=== PATIENT | female | born 1975 | race Caucasian/White ===

== ENCOUNTER → 2017-11-05 08:58 | Outpatient (CLI) | payer OTHER, SELFPAY ==
--- NOTE | 2017-11-05 09:00 | BI_ITS ---
MAMMOGRAPHY - BILATERAL SCREENING REASON FOR EXAM: Female, 41 years old. Routine annual screening examination. PERTINENT HISTORY: Grandmother with breast cancer. TECHNIQUE: Digital bilateral breast zee (3D mammographic acquisition) in the CC and MLO projections. 2-D mediolateral oblique (MLO) and craniocaudad (CC) views of both breasts were obtained. CAD: Full Field Digital Mammography with Computer Added Detection was performed. COMPARISON: None. Baseline examination. FINDINGS: Breast Composition: The breasts are extremely dense, which lowers the sensitivity of mammography. There are no dominant masses or suspicious calcifications. No other significant abnormalities are identified. BI/SCREENING MAMM (CAD), BILAT IMPRESSION: Stable bilateral screening mammogram. Yearly follow-up mammogram recommended. (A) ASSESSMENT CATEGORY: BIRADS Category 1: Negative. A letter regarding these results will be sent to the patient by the facility within 30 days. Approximately 10% of breast cancers are not detected by mammography. A normal mammogram should not delay biopsy of a clinically suspicious abnormality. [id number] Electronically Signed: Carlin Encinas MD at 10:37 EDT Tel [phone], Service support ,
== END ==
PROVIDERS: Family Provider Internal Medicine; PCP Internal Medicine; Visit Provider Obstetrics & Gynecology
DX: Z12.31 Encounter for screening mammogram for malignant neoplasm of breast (principal); Z80.3 Family history of malignant neoplasm of breast
CPT/HCPCS: 77063; 77067

== ENCOUNTER → 2018-08-03 16:49 | Outpatient (CLI) | payer OTHER, SELFPAY ==
[2018-08-03 14:29] VITALS: BMI 20.9
[2018-08-03 20:02] LABS: Chlamydia Trachomatis by PCR Negative (Negative); Neisserai gonorrhoeae by PCR Negative (Negative); Probe Check PASS; Sample Adequacy Control PASS; Specimen Processing Control PASS
== END ==
PROVIDERS: Family Provider Internal Medicine; PCP Internal Medicine; Referring Provider Nurse Practitioner Women's Health; Visit Provider Nurse Practitioner Women's Health
DX: N76.0 Acute vaginitis (principal); Z11.3 Encounter for screening for infections with a predominantly sexual mode of transmission
CPT/HCPCS: 87070; 87205; 87491; 87591

== ENCOUNTER → 2018-08-18 18:12 | Outpatient (CLI) | payer OTHER, SELFPAY ==
[2018-08-18 13:35] VITALS: BMI 20.9
== END ==
PROVIDERS: Family Provider Internal Medicine; PCP Internal Medicine; Referring Provider Nurse Practitioner Women's Health; Visit Provider Nurse Practitioner Women's Health
DX: N89.8 Other specified noninflammatory disorders of vagina (principal)
CPT/HCPCS: 87070; 87205

== ENCOUNTER → 2018-12-06 17:00 | Outpatient (CLI) | payer OTHER, SELFPAY ==
[2018-10-03 11:31] VITALS: BMI 20.9
[2018-10-07 12:29] LABS: HPV APTIMA, High Risk Negative (Negative)
--- NOTE | 2018-12-06 17:00 | BI_ITS ---
MAMMOGRAPHY - BILATERAL SCREENING REASON FOR EXAM: Female, 43 years old. Routine annual screening examination. PERTINENT HISTORY: Grandmother with breast cancer. TECHNIQUE: Digital bilateral breast home (3D mammographic acquisition) in the CC and MLO projections. 2-D mediolateral oblique (MLO) and craniocaudad (CC) views of both breasts were obtained. CAD: Full Field Digital Mammography with Computer Added Detection was performed. COMPARISON: Comparison is made with prior study dated November 05, 2017. FINDINGS: Breast Composition: The breasts are extremely dense, which lowers the sensitivity of mammography. There are no dominant masses or suspicious calcifications. I suspect a 9.1 mm x 7.6 mm well-defined nodule in the deep upper lateral aspect of the left breast. Correlation with ultrasound is recommended. No other significant abnormalities are identified. BI/SCREEN MAMM (CAD) W/HOME BILAT IMPRESSION: I suspect the 9.1 mm x 7.6 mm well-defined nodule in the deep upper lateral aspect of the left breast. Correlation with ultrasound is recommended. ASSESSMENT CATEGORY: BIRADS Category 0: Incomplete. Need additional imaging evaluation. A letter regarding these results will be sent to the patient by the facility within 30 days. Approximately 10% of breast cancers are not detected by mammography. A normal mammogram should not delay biopsy of a clinically suspicious abnormality. [id number] Electronically Signed: Carlin Encinas, at 9:00 EDT , Service support ,
== END ==
PROVIDERS: Family Provider Internal Medicine; PCP Internal Medicine; Referring Provider Obstetrics & Gynecology; Visit Provider Obstetrics & Gynecology
DX: Z12.31 Encounter for screening mammogram for malignant neoplasm of breast (principal); Z12.4 Encounter for screening for malignant neoplasm of cervix; Z80.3 Family history of malignant neoplasm of breast
CPT/HCPCS: 77063; 77067; 87624; 88175; G0145

== ENCOUNTER → 2018-12-16 09:20 | Outpatient (CLI) | payer OTHER, SELFPAY ==
[2018-10-03 11:31] VITALS: BMI 20.9
--- NOTE | 2018-12-16 09:27 | US_ITS ---
STUDY: ULTRASOUND BREAST - LEFT REASON FOR EXAM: Female, 43 years old. Abnormal screening mammogram. TECHNIQUE: Axial and longitudinal images of the LEFT breast were performed with a high resolution ultrasound transducer. COMPARISON: Comparison is made with prior mammogram dated December 06, 2018 FINDINGS: LEFT Breast: The lateral aspect of the left breast was examined by ultrasound. There are multiple small cysts. The largest measures 8 mm x 9 mm x 5 mm. This is at the 4:00 position in the breast at 3 cm from the nipple. US/Breast Limited Unilateral IMPRESSION: The mammographic abnormality corresponds to a small cyst. Routine annual mammographic follow-up is recommended. ASSESSMENT CATEGORY: BIRADS Category 2: Benign. A letter regarding these results will be sent to the patient by the facility within 30 days. Electronically Signed: Carlni Encinas, at 11:10 EDT , Service support ,
== END ==
PROVIDERS: Family Provider Internal Medicine; PCP Internal Medicine; Referring Provider Obstetrics & Gynecology; Visit Provider Obstetrics & Gynecology
DX: N63.20 Unspecified lump in the left breast, unspecified quadrant (principal); R92.8 Other abnormal and inconclusive findings on diagnostic imaging of breast
CPT/HCPCS: 76642

== ENCOUNTER → 2019-02-09 17:11 | Outpatient (CLI) | payer OTHER, SELFPAY ==
[2019-02-09 10:57] VITALS: BMI 20.9
== END ==
PROVIDERS: Family Provider Internal Medicine; PCP Internal Medicine; Referring Provider Nurse Practitioner Women's Health; Visit Provider Nurse Practitioner Women's Health
DX: R30.0 Dysuria (principal)
CPT/HCPCS: 87086; 87088; 87186

== ENCOUNTER → 2019-07-03 16:45 | Outpatient (CLI) | payer OTHER, SELFPAY ==
[2019-07-03 12:56] VITALS: BMI 20.9
== END ==
PROVIDERS: Family Provider Internal Medicine; PCP Internal Medicine; Referring Provider Nurse Practitioner Women's Health; Visit Provider Nurse Practitioner Women's Health
DX: N76.0 Acute vaginitis (principal)
CPT/HCPCS: 87070; 87205

== ENCOUNTER → 2020-01-12 13:29 | Outpatient (CLI) | payer OTHER, SELFPAY ==
[2020-01-08 08:46] VITALS: BMI 20.9
--- NOTE | 2020-01-12 13:31 | US_ITS ---
STUDY: ULTRASOUND BREAST - LEFT REASON FOR EXAM: Female, 44 years old. Palpable lump in the right breast. TECHNIQUE: Axial and longitudinal images of the LEFT breast were performed with a high resolution ultrasound transducer. # OF IMAGES: 26 COMPARISON: Comparison is made with prior mammogram dated January 12, 2020. FINDINGS: LEFT Breast: Multiple small cysts are seen. The largest measures 4 mm x 5 mm x 5 mm. This is at the 12:00 position of the breast at 3 cm from the nipple. US/Breast Limited Unilateral IMPRESSION: Multiple small cysts. The largest measures 4 mm x 5 mm x 5 mm. ASSESSMENT CATEGORY: BIRADS Category 2: Benign. A letter regarding these results will be sent to the patient by the facility within 30 days. Electronically Signed: Carlin Encinas, at 14:32 EDT , Service support ,
--- NOTE | 2020-01-12 13:31 | BI_ITS ---
MAMMOGRAPHY - BILATERAL DIAGNOSTIC REASON FOR EXAM: Female, 44 years old. Left breast lump. PERTINENT HISTORY: Grandmother with breast cancer. Prior left ultrasound guided Breast Biopsy. TECHNIQUE: Digital bilateral breast zee (3D mammographic acquisition) in the CC and MLO projections. 2-D mediolateral oblique (MLO) and craniocaudad (CC) views of both breasts were obtained. CAD: Full Field Digital Mammography with Computer Added Detection was performed. COMPARISON: Comparison is made with a prior examination dated December 06, 2018. FINDINGS: Breast Composition: The breasts are extremely dense, which lowers the sensitivity of mammography. Amorphous calcifications are now seen in the upper central portion of the left breast. A biopsy is recommended for further evaluation. No other significant abnormalities are identified. BI/DIAG MAMM W/CAD, BILAT IMPRESSION: Amorphous calcifications are now seen in the upper central portion of the left breast. A biopsy is recommended for further evaluation. ASSESSMENT CATEGORY: BIRADS Category 4: Suspicious - Biopsy Should Be Considered. A letter regarding these results will be sent to the patient by the facility within 30 days. Approximately 10% of breast cancers are not detected by mammography. A normal mammogram should not delay biopsy of a clinically suspicious abnormality. Electronically Signed: Carlin Encinas, at 14:24 EDT , Service support ,
== END ==
PROVIDERS: PCP Internal Medicine; Referring Provider Obstetrics & Gynecology; Visit Provider Obstetrics & Gynecology
DX: N60.12 Diffuse cystic mastopathy of left breast (principal); Z80.3 Family history of malignant neoplasm of breast
CPT/HCPCS: 76642; 77062; 77066; G0279

== ENCOUNTER → 2020-01-19 10:40 | Outpatient (CLI) | payer OTHER, SELFPAY ==
[2020-01-17 09:09] VITALS: BMI 20.6
--- NOTE | 2020-01-19 | IMM_PTH ---
PATIENT: SALVATORE ZHANG LOC: [facility] U#:[id number] AGE/SX: 49/F ROOM: RE01/19/[address]: Dr. Quinn Gallegos MD : 1975 BED: DIS: SPEC #: [id number] RECD: 01/23/20 10:48 STATUS: LAURA REQ #: [id number] DONTE: 01/19/20 00:[address]: Quinn Gallegos DEPT: IMMUNOHISTOCHEMISTRY RECD BY: Roxanne Matute ENTERED: 01/23/20 10:49 SP TYPE: IMMUNO OTHR DR: Dr. Grace Alvarado MD Tissues: Left breast, NOS Procedures: CALPONIN-1 (add) CK5-6 (add) E-CAD (add) HER2 MARY LOU (add) KI-67 (add) P53 (add) NM (add) P40 (add) ER (initial) PHYSICIAN & INSTITUTION [address] [address] SPECIMEN INFORMATION: Tissue Source: Left breast Clinical Info: Left upper central breast microcalcifications Specimen Number: [id number] #1 CPT code: 66137, 27035 x6, 55332 x3 METHODOLOGY: Deparaffinized sections of prefer/formalin-fixed tissue or PAP/DQ stained slides are incubated with monoclonal/polyclonal antibodies/oligonucleotide probes. Localization is made via biotin free immunoperoxidase method. Appropriate controls are performed and reacted as expected. Results on target cell population are indicated in the following table: RESULTS: ANTIBODY / CLONE RESULT Block 1 E-Cad (ECH-6) positive CK8 (52oyprL76) positive Calponin-1 (KK485O) negative * CK5-6 (D5 & 1684) positive P40 (BC28) negative * P53 (DO-7) negative Ki-67 (30-9) positive, moderate *?Positive in the area of ductal carcinoma in situ. MORPHOMETRIC ANALYSIS ER (clone 6F11) >95%, strong intensity NM (clone 16/1E2) 28% moderate intensity Her-2Neu (clone CB11) 0 The prognostic test for HER2 is performed on formalin-fixed paraffin embedded tissue. A 3+ (positive) staining pattern is defined as intense, homogeneous, complete, circumferential membranous staining in >10% of contiguous tumor cells. A similar weak (2+) staining pattern is interpreted as equivocal. NIKHIL follow-up testing is recommended for all equivocal cases. Positivity/negativity for ER/NM is reported if > or < 1% of the tumor cells are immuno- reactive, respectively. The ASCO/CAP criteria is used for scoring. Reference: Journal of Clinical Oncology, 2013; 31:4180-6263 & 2010; 16:2110-8702. Duration of fixation: 80 Hrs; Sample Adequate: Yes. These assays have not been validated on decalcified tissues. Results should be interpreted with caution given the likelihood of false negativity on decalcified specimens. These tests were developed and their performance characteristics determined by [facility]. They may not have been cleared or approved by the U.S. Food and Drug Administration. The FDA has determined that such clearance or approval is not necessary. The above immunohistochemical/dualISH markers are ordered and reviewed by the Pathologist. 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 Positive for estrogen receptors (favorable prognostic indicator). Positive for progesterone receptors (favorable prognostic indicator). Negative for overexpression of KTT6emq. SJ:dewey 01/24/20
--- NOTE | 2020-01-19 11:25 | BRBX_PTH ---
PATIENT: SALVATORE ZHANG LOC: [facility] U#:[id number] AGE/SX: 49/F ROOM: RE01/19/[address]: Dr. Quinn Gallegos MD : 1975 BED: DIS: SPEC #: [id number] RECD: 01/19/20 13:42 STATUS: LAURA YOVANA #: [id number] DONTE: 01/19/20 11:[address]: Quinn Gallegos DEPT: SURGICAL PATHOLOGY RECD BY: Herminia Jean Baptiste ENTERED: 01/22/20 10:56 SP TYPE: BREAST BX OTHR DR: Dr. Grace Alvarado MD Tissues: Left breast, NOS Procedures: Surgery Specimen Level IV HEADER OPERATION: Left breast stereotactic biopsy PRE-OP DIAGNOSIS: Left upper central breast microcalcification TISSUE SUBMITTED: Left breast tissue ISCHEMIC TIME: 2 minutes FIXATION TIME: 80 hours MICROSCOPIC DIAGNOSIS Left breast, upper central microcalcifications, stereotactic core biopsy: Invasive ductal carcinoma, nuclear grade 1 (1 cm in greatest length). Ductal carcinoma in situ. See comment. LIV:dewey 01/23/20 COMMENT Ductal carcinoma in situ shows cribriform pattern, nuclear grade 2, microcalcifications, comedo necrosis and comprise about 30% of the total tumor volume. Immunohistochemistry ([id number]) supports the above diagnosis. ER/KS/Ksp9sui studies are being performed on sections of tumor and the results from this study will be reported separately ([id number]). Case has been reviewed in consultation with Dr. Bowden who concurs with the above diagnosis. IDC:AM MICROSCOPIC DESCRIPTION Slides are reviewed. GROSS DESCRIPTION Received in fixative is one container labeled with the patient name and designated left breast. The specimen consists of multiple elongated fragments of delarosa-yellow fibroadipose tissue that in aggregate measure 4 x 3 x 0.3 cm. The entire specimen is submitted in two cassettes. / LIV:dewey 01/22/20 TC:0 CPT: 42145
--- NOTE | 2020-01-19 11:55 | NURSING ---
PRESSURE HELD, NO BLEEDING OR BRUISING, SKIN PREP APPLIED, STERI STRIPS X5 APPLIED,OCCULSIVE DRESSING APPLIED, REVIEWED HOME CARE.
--- NOTE | 2020-01-19 14:06 | PCM.OPRPT ---
Problem List (1) Breast lump Status: Acute Comment: 12 o clock L breast, imaging ordered. plan either gen surg consult or fu exam in office in 1 month based on results. Report of Operation Date of Procedure: 01/19/20 Pre-Operative Diagnosis: Left breast microcalcifications on mammogram Post-Operative Diagnosis: Same Surgery/Procedure Performed:: Stereotactic guided core needle biopsy of the left breast Specimen's removed: Left breast biopsy Description of Procedure: Patient was brought to the stereotactic room and placed on the stereotactic table. The left breast was compressed and mammogram views were obtained. Once the microcalcifications were isolated stereotactic views were obtained and the microcalcifications were targeted. After the needle was oriented the skin was cleaned and injected with local anesthetic. Next a small onur was made with a scalpel and the stereotactic needle was placed into the breast. Stereotactic views were then reobtained to ensure that the needle was in position and biopsies were obtained. The aperture was only half open due to the size of her breast and enough calcifications were not obtained. The aperture was changed to three quarters open and biopsies were repeated. Mammogram of these repeat biopsies did reveal microcalcifications. Next the clip was placed into the breast and then the needle was removed. A Steri-Strip and bandage were placed over the breast and the patient was discharged home in stable condition. Patient tolerated procedure well.
--- NOTE | 2020-02-09 02:38 | HP_ITS ---
Intake Vital Signs 02/09/20 BMI 20.6 02/09/20 Height 5 ft 8 in 02/09/20 Weight: 136 lb 02/09/20 BMI 20.7 02/09/20 BP 125/74 H 02/09/20 Blood Pressure Location Rt brachial 02/09/20 Position Sitting 02/09/20 Respiration 18 02/09/20 Pulse 88 02/09/20 Pulse Source Monitor 02/09/20 Temp 98.0 F 02/09/20 Temp Source Temporal 02/09/20 Pulse Oximetry (%) 100 02/09/20 Oxygen Delivery Method room air Intake Visit Reasons: DISCUSS SURGERY Chief Complaint: discuss breast surgery Vp Of Customer Experience Strategy Required: No Accompanied by: Is patient in pain?: No Allergies cephalexin [From Keflex] Allergy (Intermediate, Verified 02/09/20 14:07) Rash sulfamethoxazole [From Bactrim] Adverse Reaction (Intermediate, Verified 02/09/20 14:07) inflammation/itching/rash trimethoprim [From Bactrim] Adverse Reaction (Intermediate, Verified 02/09/20 14:07) inflammation/itching/rash Medications levonorgestrel-ethinyl estradiol 0.1 mg-20 mcg tablet 1 tab PO DAILY 07/03/19 [History Confirmed 02/09/20] lactobacillus combination no.4 3 billion cell capsule 3,000 mmu cells PO DAILY 01/17/20 [History Confirmed 02/09/20] multivitamin 1 tab PO DAILY 01/17/20 [History Confirmed 02/09/20] PFSH Medical History Estrogen receptor positive status (ER+) (Chronic) Allergies (Acute) Breast cancer, left (Acute) Breast cyst (Acute) Frequent headaches (Acute) Surgical History H/O cervical polypectomy (Acute) history of uterine cyst removal (Acute) Family History Mother High cholesterol Arthritis Brother High cholesterol Hodgkin lymphoma Grandmother Breast cancer, Onset Age: 78 Maternal Father Hypertension Other Heart disease Myocardial infarction Social History (Updated 02/09/20 @ 14:[address] 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 Patient was found to have a left invasive ductal carcinoma. ROS General General: No weight change, appetite, fatigue, colon cancer, breast cancer or weakness HEENT HEENT: No difficulty swallowing, eye injury, eye surgery, swollen glands or hoarseness Endo Endocrine: No thyroid disease, diabetes mellitus, thyroid cancer, Hair loss, heat intolerance or cold intolerance Breast Breast: Yes abnormal mammogram and abnormal US; no left breast lump, right breast lump, nipple discharge, breast pain or breast enlargement Cardio Cardiovascular: No murmur, pacemaker, heart disease, atrial fibrillation, high blood pressure, heart attack, heart stent, palpitations, shortness of breat with exertion or chest pain Psych Psychiatric: No depression, anxiety or hearing voices Resp Respiratory: No shortness of breath, No sleep apnea, No cough, No COPD, No asthma, No emphysema, No wheezing Gastro Gastrointestinal: No abdominal pain, No nausea or vomiting, No diarrhea, No constipation, No blood in stool, No acid reflux, No hemorrhoids, No ulcers, No gallbladder problem, No black,tarry stools Vargas Hematologic: No blood thinners, No blood disorders, No bleeding, No anemia, No blood clots Neuro Neurologic: No weakness Exam Const General: cooperative Orientation: alert, oriented x3 Chest Breast Palpation: No nipple discharge Resp Effort & Inspection: normal respiratory effort Auscultation: clear to auscultation bilaterally Cardio Rate: regular rate Rhythm: regular rhythm Heart Sounds: no murmurs GI Inspection: non-distended Palpation: soft, nontender Assessment & Plan Problems 1. Malignant neoplasm of upper-outer quadrant of left breast in female, estrogen receptor positive C50.412; Z17.0 Plan The patient has invasive ductal carcinoma of the left breast. The patient did see radiation oncology as well as plastic surgery in anticipation of deciding what surgery to perform. The patient has decided on a skin sparing left mastectomy with sentinel lymph node biopsy. I discussed that this would leave future reconstruction option. I also discussed the risks of sentinel lymph node biopsy such as nerve injury or bleeding or seroma. I also discussed drain placement and short-term observation with the patient. I also discussed the possibility of lymphedema. All the patient's questions were answered and I will schedule the patient for left skin sparing mastectomy and sentinel lymph node biopsy with injection of radiotracer and blue dye. We discussed the current risks associated with COVID-19. While it is understood that there is a community spread of COVID-19, the risk of iain COVID-19 while at [facility] ([facility]) is very low; however, the risk cannot be completely mitigated because of the community spread of the disease. We discussed in detail the risk of exposure to and/or potential harm posed by the COVID-19 virus with having a surgery/procedure at this time versus the risk of delaying the surgery/procedure. It is not possible to know either the risk of delaying the surgery or procedure or chance of getting an infection with perfect accuracy, but a joint decision was made to proceed at this time with the scheduled surgery/procedure as indicated on the consent form. Patient was notified that we will need to comply with any screening or testing [facility] wishes to perform or that surgery may be delayed for any positive results. Quinn Gallegos MD Pager: [facility] [address] [place] [address], [address] [place] [address] Office: Coding Level of Care Code Off vis,est,level 3 Diagnoses Malignant neoplasm of upper-outer quadrant of left breast in female, estrogen receptor positive C50.412; Z17.0 ??Breast location: upper outer quadrant of breast ??Estrogen receptor status: positive ??Patient sex: female 02/09/20 [id number] <Electronically signed by Quinn mckeon MD> Date _ Quinn Gallegos MD
== END ==
PROVIDERS: PCP Internal Medicine; Visit Provider Surgery
DX: C50.112 Malignant neoplasm of central portion of left female breast (principal); Z17.0 Estrogen receptor positive status [ER+]
CPT/HCPCS: 19081; 88305; 88341; 88342; J7050; A4648

== ENCOUNTER 2020-02-26 12:52 | Observation (INO) | payer OTHER, SELFPAY ==
[2020-02-01 09:13] VITALS: BMI 20.7
--- NOTE | 2020-02-09 02:38 | HP_ITS ---
Intake Vital Signs 02/09/20 BMI 20.6 02/09/20 Height 5 ft 8 in 02/09/20 Weight: 136 lb 02/09/20 BMI 20.7 02/09/20 BP 125/74 H 02/09/20 Blood Pressure Location Rt brachial 02/09/20 Position Sitting 02/09/20 Respiration 18 02/09/20 Pulse 88 02/09/20 Pulse Source Monitor 02/09/20 Temp 98.0 F 02/09/20 Temp Source Temporal 02/09/20 Pulse Oximetry (%) 100 02/09/20 Oxygen Delivery Method room air Intake Visit Reasons: DISCUSS SURGERY Chief Complaint: discuss breast surgery Machine Fastener Required: No Accompanied by: Is patient in pain?: No Allergies cephalexin [From Keflex] Allergy (Intermediate, Verified 02/09/20 14:07) Rash sulfamethoxazole [From Bactrim] Adverse Reaction (Intermediate, Verified 02/09/20 14:07) inflammation/itching/rash trimethoprim [From Bactrim] Adverse Reaction (Intermediate, Verified 02/09/20 14:07) inflammation/itching/rash Medications levonorgestrel-ethinyl estradiol 0.1 mg-20 mcg tablet 1 tab PO DAILY 07/03/19 [History Confirmed 02/09/20] lactobacillus combination no.4 3 billion cell capsule 3,000 mmu cells PO DAILY 01/17/20 [History Confirmed 02/09/20] multivitamin 1 tab PO DAILY 01/17/20 [History Confirmed 02/09/20] PFSH Medical History Estrogen receptor positive status (ER+) (Chronic) Allergies (Acute) Breast cancer, left (Acute) Breast cyst (Acute) Frequent headaches (Acute) Surgical History H/O cervical polypectomy (Acute) history of uterine cyst removal (Acute) Family History Mother High cholesterol Arthritis Brother High cholesterol Hodgkin lymphoma Grandmother Breast cancer, Onset Age: 78 Maternal Father Hypertension Other Heart disease Myocardial infarction Social History (Updated 02/09/20 @ 14:[address] 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 Patient was found to have a left invasive ductal carcinoma. ROS General General: No weight change, appetite, fatigue, colon cancer, breast cancer or weakness HEENT HEENT: No difficulty swallowing, eye injury, eye surgery, swollen glands or hoarseness Endo Endocrine: No thyroid disease, diabetes mellitus, thyroid cancer, Hair loss, heat intolerance or cold intolerance Breast Breast: Yes abnormal mammogram and abnormal US; no left breast lump, right breast lump, nipple discharge, breast pain or breast enlargement Cardio Cardiovascular: No murmur, pacemaker, heart disease, atrial fibrillation, high blood pressure, heart attack, heart stent, palpitations, shortness of breat with exertion or chest pain Psych Psychiatric: No depression, anxiety or hearing voices Resp Respiratory: No shortness of breath, No sleep apnea, No cough, No COPD, No asthma, No emphysema, No wheezing Gastro Gastrointestinal: No abdominal pain, No nausea or vomiting, No diarrhea, No constipation, No blood in stool, No acid reflux, No hemorrhoids, No ulcers, No gallbladder problem, No black,tarry stools Vargas Hematologic: No blood thinners, No blood disorders, No bleeding, No anemia, No blood clots Neuro Neurologic: No weakness Exam Const General: cooperative Orientation: alert, oriented x3 Chest Breast Palpation: No nipple discharge Resp Effort & Inspection: normal respiratory effort Auscultation: clear to auscultation bilaterally Cardio Rate: regular rate Rhythm: regular rhythm Heart Sounds: no murmurs GI Inspection: non-distended Palpation: soft, nontender Assessment & Plan Problems 1. Malignant neoplasm of upper-outer quadrant of left breast in female, estrogen receptor positive C50.412; Z17.0 Plan The patient has invasive ductal carcinoma of the left breast. The patient did see radiation oncology as well as plastic surgery in anticipation of deciding what surgery to perform. The patient has decided on a skin sparing left mastectomy with sentinel lymph node biopsy. I discussed that this would leave future reconstruction option. I also discussed the risks of sentinel lymph node biopsy such as nerve injury or bleeding or seroma. I also discussed drain placement and short-term observation with the patient. I also discussed the possibility of lymphedema. All the patient's questions were answered and I will schedule the patient for left skin sparing mastectomy and sentinel lymph node biopsy with injection of radiotracer and blue dye. We discussed the current risks associated with COVID-19. While it is understood that there is a community spread of COVID-19, the risk of iain COVID-19 while at [facility] ([facility]) is very low; however, the risk cannot be completely mitigated because of the community spread of the disease. We discussed in detail the risk of exposure to and/or potential harm posed by the COVID-19 virus with having a surgery/procedure at this time versus the risk of delaying the surgery/procedure. It is not possible to know either the risk of delaying the surgery or procedure or chance of getting an infection with perfect accuracy, but a joint decision was made to proceed at this time with the scheduled surgery/procedure as indicated on the consent form. Patient was notified that we will need to comply with any screening or testing [facility] wishes to perform or that surgery may be delayed for any positive results. Quinn Gallegos MD Pager: [facility] [address] [place] [address], [address] [place] [address] Office: Coding Level of Care Code Off vis,est,level 3 Diagnoses Malignant neoplasm of upper-outer quadrant of left breast in female, estrogen receptor positive C50.412; Z17.0 ??Breast location: upper outer quadrant of breast ??Estrogen receptor status: positive ??Patient sex: female 02/09/20 6228 <Electronically signed by Quinn Gallegos MD> Date Quinn Gallegos MD I have re-examined the patient. There are no clinical changes since date of exam.
[2020-02-09 14:07] VITALS: BMI 20.6
[2020-02-14 09:35] VITALS: BMI 20.6
[2020-02-26] VITALS (10 sets, daily range): BP systolic 100–117; BP diastolic 57–73; PULSE 65–96; RESP 12–18; TEMP 36.2–37.2; O2SAT 98–100; BMI 20.4
--- NOTE | 2020-02-26 | IMM_PTH ---
PATIENT: SALVATORE ZHANG LOC: MS3 U#:[id number] AGE/SX: 44/F ROOM: MO320 RE02/26/[address]: Dr. Quinn Gallegos MD : 1975 BED: 1 DIS: 02/27/2020 SPEC #: [id number] RECD: 02/28/20 13:26 STATUS: LAURA RERichy #: [id number] DONTE: 02/26/20 00:[address]: Quinn Gallegos DEPT: IMMUNOHISTOCHEMISTRY RECD BY: Roxanne Matute ENTERED: 02/28/20 13:29 SP TYPE: IMMUNO OTHR DR: Dr. Grace Alvarado MD Tissues: A - Axillary lymph node, NOS B - Axillary lymph node, NOS C - Left breast, NOS Procedures: CK8 (initial) SMA (add) CALPONIN-1 (add) CD31 (add) CK8 (add) E-CAD (add) Pankeratin (add) P40 (add) PHYSICIAN & INSTITUTION [address] [address] SPECIMEN INFORMATION: Tissue Source: A - [place] lymph nodes, B - [place] lymph node, C - Left breast Clinical Info: Malignant neoplasm of UOQ left breast, ER positive Specimen Number: [id number] A1, A2, B1, C11, C13 CPT code: 53994 x3, 86611 x15 METHODOLOGY: Deparaffinized sections of prefer/formalin-fixed tissue or PAP/DQ stained slides are incubated with monoclonal/polyclonal antibodies/oligonucleotide probes. Localization is made via biotin free immunoperoxidase method. Appropriate controls are performed and reacted as expected. Results on target cell population are indicated in the following table: RESULTS: ANTIBODY / CLONE RESULT Block A1 AE1-3 (AE1/AE3/PCK26) positive CK8 ([id number]) positive Block A2 AE1-3 (AE1/AE3/PCK26) negative CK8 (08pxgtK21) negative Block B1 AE1-3 (AE1/AE3/PCK26) negative CK8 (38bjdvI92) negative Block C11 P40 (BC28) negative Calponin-1 (GB343L) negative Actin (1A4) negative E-Cad (ECH-6) positive CK8 (68szduV82) positive CD31 (JOMAR/70A) positive Block C13 P40 (BC28) negative Calponin-1 (MO453G) negative Actin (1A4) negative E-Cad (ECH-6) positive CK8 (04znlbN55) positive CD31 (JOMAR/70A) negative These tests were developed and their performance characteristics determined by [facility]. They may not have been cleared or approved by the U.S. Food and Drug Administration. The FDA has determined that such clearance or approval is not necessary. The above immunohistochemical/dualISH markers are ordered and reviewed by the Pathologist. INTERPRETATION: A. [place] lymph nodes, biopsy: One of one lymph node with micrometastatic carcinoma. B. [place] lymph node, biopsy: One of one lymph node negative for carcinoma. C. Left breast, mastectomy: Invasive ductal carcinoma, multifocal. Focal angiolymphatic invasion by carcinoma. AM:dewey 02/29/20 Case has been reviewed in consultation with Dr. Blanca who concurs with the above diagnosis. IDC:SJ
--- NOTE | 2020-02-26 | AXNB_PTH ---
PATIENT: SALVATORE ZHANG LOC: MS3 U#:[id number] AGE/SX: 44/F ROOM: IL320 RE02/26/[address]: Dr. Quinn Gallegos MD : 1975 BED: 1 DIS: 02/27/2020 SPEC #: [id number] RECD: 02/26/20 11:53 STATUS: LAURA YEN #: [id number] DONTE: 02/26/20 00:[address]: Quinn Gallegos DEPT: SURGICAL PATHOLOGY RECD BY: Roxanne Matute ENTERED: 02/26/20 12:33 SP TYPE: AX NODE BX OTHR DR: Dr. Grace Alvarado MD Tissues: A - Axillary lymph node, NOS B - Axillary lymph node, NOS C - Left breast, NOS Procedures: Frozen Section (charge) Frozen Section Add'l ([facility]) Surgery Specimen Level V Surgery Specimen Level HEADER OPERATION: Mastectomy with sentinel lymph node biopsy, radiotracer PRE-OP DIAGNOSIS: Malignant neoplasm of upper outer quadrant left breast, ER positive TISSUE SUBMITTED: A - [place] lymph node, FS, 2 - [place] lymph node, FS, C - Left breast, short suture - superior, long suture - lateral FROZEN SECTION DIAGNOSIS A. [place] lymph nodes, biopsy: Two out of two lymph nodes, negative for metastatic carcinoma. B. [place] lymph node, left, biopsy: One lymph node, negative for metastatic carcinoma. SJ:dewey 02/26/20 MICROSCOPIC DIAGNOSIS A. Left axillary sentinel lymph nodes, biopsy: One out of two lymph nodes, positive for micrometastatic carcinoma. B. Left axillary sentinel lymph node, biopsy: One out of one lymph node, negative for carcinoma. C. Left breast, mastectomy: Invasive ductal carcinoma. See cancer checklist below. AM:dewey 02/29/20 COMMENT INVASIVE BREAST CANCER SUMMARY: Procedure: Mastectomy Specimen: Type: Total breast Size: 13 x 12 x 4 cm Laterality: Left breast Invasive Tumor: Size: Largest focus - 2.5 x 2 x 2 cm Second focus - 1.6 x 1.2 x 0.3 cm Third focus - 0.4 x 0.3 x 0.3 cm Focality: Multifocal Histologic type: Invasive ductal carcinoma, NOS. Histologic grade (Bella[place] grade): Glandular/tubular differentiation score: 2 Nuclear pleomorphism score: 2 Mitotic count score: 2 Overall grade: 2 (score of 6) Lymphvascular invasion: focally present Ductal Carcinoma In Situ: Estimated size (extent): 0.8 x 0.5 x 0.5 cm Number of blocks: 6 of 12 blocks Architectural pattern: Cribriform and comedo Nuclear grade: 3 Necrosis: Present Extensive intraductal component: Present Lobular Carcinoma In Situ: Not present Tumor extension: Skin: Free of carcinoma Nipple: Free of carcinoma Skeletal muscle: Not applicable Margins Involved by Invasive Carcinoma: None. Distance from closest margin: 1 mm from posterior margin Margins Involved by In Situ Carcinoma: None. Distance from closest margin: 1 mm from posterior margin Lymph Nodes: Number of sentinel lymph nodes examined: 3 Number of lymph nodes with macrometastases: 0 Number of lymph nodes with micrometastases: 1 See specimens A & B Size of largest micrometastatic focus: 1 mm Microcalcifications: Present in carcinoma and non-neoplastic tissue. Treatment Effect: Unknown Additional Pathologic Findings: Florid intraductal hyperplasia with multifocal atypical intraductal hyperplasia, fibrocystic change and changes of previous biopsy. Ancillary Studies: Previously performed on same tumor ([id number]) ER: >95%, strong intensity TN: 28%, moderate intensity Lrd2zjn: 0 Clinical History: Mass of left breast Pathologic Stage: T2 N1 Mx The above summary is in compliance with [employer] (CAP) Cancer Protocols Checklist and [place] [employer] Committee on Cancer (AJCC), Staging Manual, 8th Ed. Case has been reviewed in consultation with Dr. Blanca who concurs with the above diagnosis. IDC:SJ MICROSCOPIC DESCRIPTION Slides are reviewed. GROSS DESCRIPTION A - Received fresh for frozen section diagnosis labeled with the patient's name is a specimen designated sentinel lymph node. The specimen consists of a piece of delarosa-yellow fibroadipose tissue measuring 2.5 x 2 x 0.5 cm. Two lymph nodes are identified measuring 0.4 and 2 cm in greatest dimension. The lymph nodes are submitted in entirety for frozen section diagnosis in two cassettes as follows: 1 - frozen section, one lymph node, 2 - frozen section, one bisected lymph node. / SJ: 02/26/20 B - Received fresh for frozen section diagnosis labeled with the patient's name is a specimen designated sentinel lymph node left breast. The specimen consists of a piece of delarosa-yellow fibroadipose tissue measuring 2.5 x 1.5 x 0.5 cm. One lymph node is identified measuring 1 cm in greatest dimension. The entire specimen is submitted in two cassettes as follows: 1 - frozen section, one bisected lymph node, 2??rest of the specimen. / SJ: 02/26/20 C - Received in fixative is one container labeled with the patient's name and designated left breast, short suture - superior, long suture - lateral. The specimen consists of mastectomy specimen consisting of breast tissue with overlying skin ellipse. The breast tissue measures 13 x 12 x 4 cm. The overlying skin ellipse measures 10.5 x 2.5 cm. The nipple measures 1.2 cm in greatest dimension. No skin lesion is identified. Blue dye discoloration is noted on the skin on the breast tissue. The specimen is inked as follows: anterior - yellow, posterior - black, superior - blue, inferior - green, medial - red and lateral - orange. Skeletal muscle tissue is not seen at the posterior margin. Serial sections reveal a delarosa, indurated mass in the superior quadrant of the breast tissue measuring 2.5 x 2 x 2 cm. Sections of the rest of the breast tissue also reveal dense fibrosis. The tumor mass is 0.1 cm away from the closest posterior margin. Sections will be submitted after overnight fixation. / SJ: 02/26/20 A focal area of hemorrhage is also noted. Order Checker Packer Processer sections are submitted in 18 cassettes as follows: 1 - nipple, entirely submitted, 2 - perpendicular medial, lateral and superior margins, 3??perpendicular inferior, anterior margin and skin, 48 - tumor (4 & 5 also contain the closest posterior margin), 9-18 - business services representative sections adjacent to and away from the tumor (cassettes 16-18 contain the area of hemorrhage). This area of hemorrhage is present away from the tumor. / SJ:rg 02/27/20 TC:0 CPT: 62166 x2, 40224, 55802 x2, 99446 x2 ADDENDUM ADDENDUM ADDENDUM ADDENDUM ADDENDUM ADDENDUM ADDENDUM ADDENDUM 03/25/2020 10:32 ADDENDUM 03/25/2020 10:32 ADDENDUM 03/25/2020 10:32 ADDENDUM 03/25/2020 10:32 ADDENDUM 03/25/2020 10:32 An order for Oncotype testing was received from Dr. Ferrer. This necessitated case review, block and slide selection by pathologist at [facility]. Breast Cancer Recurrence Score = 20 Results of the complete Oncotype testing ([facility] report) are viewable in EMR under: Reports - Pathology - Lab Pathology Report, Scanned.
--- NOTE | 2020-02-26 08:30 | NM_ITS ---
PROCEDURE: NUCLEAR MEDICINE Injection [place] Node - LEFT breast(s). REASON FOR EXAM: Female, 44 years old. Left breast cancer. TECHNIQUE: [place] node localization using radionuclide methods of the LEFT breast(s) was performed following subcutaneous administration of 1.1 mCi of of sulfur colloid Tc-99m. NM/Lymph Node Injection Only IMPRESSION: 1.1 mCi of technetium labeled sulfur colloid was injected subcutaneously in 4 equal aliquots at the biopsy site. Electronically Signed: Carlin Encinas, at 10:18 EDT , Service support ,
[2020-02-26 08:42] LABS: Internal QC Validated? YES +Cl - CLEAR BKGD; Pregnancy, Urine Negative Negative
[2020-02-26] MEDS: Lactated Ringers 1,000 ML 100 ML IV ×3 (09:30→14:35)
[2020-02-26] MEDS: 0.9% Normal Saline (Pres. free 10 ML Vial (11:03)
[2020-02-26] MEDS: Isosulfan Blue 1% 5 ML Vial (11:45)
--- NOTE | 2020-02-26 12:57 | PCM.OPRPT ---
Problem List (1) Cancer of left breast Status: Acute Qualifiers: Breast location: upper outer quadrant of breast Estrogen receptor status: positive Patient sex: female Qualified Code(s): C50.412 - Malignant neoplasm of upper-outer quadrant of left female breast; Z17.0 - Estrogen receptor positive status [ER+] Report of Operation Date of Procedure: 02/26/20 Pre-Operative Diagnosis: Left breast cancer Post-Operative Diagnosis: Same Surgery/Procedure Performed:: Left simple mastectomy. Left axillary sentinel lymph node biopsy. Injection of blue dye Specimen's removed: Left breast. Left sentinel lymph node. Left sentinel lymph node specimen #2 Drains: BUFFY to bulb suction Description of Procedure: Patient was brought back to the operating room and general anesthesia was induced. The left breast was wiped with alcohol swab and 5 cc of Lymphazurin was injected into the retroareolar space. 5 cc of saline were then injected and the breast was massaged for 5 minutes. Next the left breast and axillary region were prepped and draped in usual sterile fashion. An incision was marked in elliptical fashion around the nipple extending to the left axillary region. An incision was then made and electrocautery was used to deepen the incision to the breast tissue. The superior flap was raised using electrocautery as well as the inferior flap in the same fashion. Hemostasis was obtained. The flaps were extended laterally into the axilla. The axillary fascia was incised. Using radiotracer the axilla was inspected and there appeared to be a hot zone of lymph nodes. There was one small lymph node dissected free and a medium clip was used to take it at its pedicle. There were 2 other lymph nodes that had radioactive activity that were removed. The highest 10-second count was 4500. Nothing remained over 200 in the axilla after biopsy. There is good hemostasis in the axilla. Next the breast was taken off of the pectoral muscle. This was done in a medial to lateral fashion and the left breast was marked and sent for pathology. The frozen on the axillary lymph nodes came back as negative in all 3 lymph nodes. The area was irrigated and suctioned dry and hemostasis was maintained using electrocautery. Next a drain was placed through the skin and around the mastectomy site and Carlee powder was sprayed over the pectoral muscle. The skin was anesthetized and closed with interrupted 3-0 Vicryl sutures as well as a running 4-0 Monocryl suture. The drain was sutured in place using a 3-0 nylon suture. Glue was placed over the incision. The patient was awoken and taken to PACU in stable condition. - Admit VTE Documentation VTE Mechan Device Prophylaxis: SCD's
[2020-02-26] MEDS: Acetaminophen 325 MG Tablet 650 MG PO ×2 (16:15→20:33)
[2020-02-26] MEDS: Ketorolac 15 MG/ML Vial IV (20:32)
[2020-02-26] MEDS: 0.9% Saline Lock 10 ML Syringe IV (20:33)
[2020-02-27] VITALS: BP 88/46; PULSE 62; RESP 16; TEMP 36.7; O2SAT 99
[2020-02-27] MEDS: Lactated Ringers 1,000 ML 100 ML IV (00:21)
[2020-02-27 02:14] VITALS: BP 91/50; PULSE 70; RESP 16; TEMP 36.7; O2SAT 100
[2020-02-27] MEDS: Acetaminophen 325 MG Tablet 650 MG PO (02:36)
[2020-02-27 07:38] VITALS: BP 96/42; PULSE 67; RESP 16; TEMP 36.7; O2SAT 98
--- NOTE | 2020-02-27 07:47 | PCM.DC.BS ---
Discharge Diet: No Restrictions Discharge Activity: May Not Drive - for 2-3 days or while taking narcotic pain meds., May Shower Lifting Restrictions: 10 pounds for 1 week. Call your doctor if your incision/area has: Continuous Slow Oozing, Sudden Increased Bleeding, Increased Pain/ Swelling, Increased Redness, Foul Smelling Discharge, Swelling at the incision site Call your doctor if you observe: Fever of 101 or Higher Suture Line Care: Avoid Pulling/Pushing, Avoid Pinching/Bending Cleanse incision/area with: Soap & Water Drain: Suction Additional Dressing/Incision Instructions:: Record drain output Allergies/Adverse Reactions: Allergies cephalexin [From Keflex] Allergy (Intermediate, Verified 02/26/20 08:58) Rash sulfamethoxazole [From Bactrim] Allergy (Intermediate, Verified 02/26/20 08:58) inflammation/itching/rash trimethoprim [From Bactrim] Allergy (Intermediate, Verified 02/26/20 08:58) inflammation/itching/rash gluten Allergy (Mild, Verified 02/26/20 08:58) Other abdominal pain, gas, fatigue Medications to take at Discharge lactobacillus combination no.4 3 billion cell capsule 3,000 mmu cells PO DAILY 01/17/20 multivitamin 1 tab PO DAILY 01/17/20 loratadine 10 mg tablet 10 mg PO DAILY PRN 02/14/20 Acetaminophen [Tylenol Tablet] 650 mg PO Q4H PRN PRN tab 02/27/20 Please Follow Up With: Quinn Gallegos MD When: Please call to schedule 1 week follow up appointment. [phone]
[2020-02-27] MEDS: Ketorolac 15 MG/ML Vial IV (09:14)
[2020-02-27] MEDS: 0.9% Saline Lock 10 ML Syringe IV (09:14)
== END 2020-02-27 10:49 | disposition home or self-care (01) ==
LOC: SDC 13:24 → MS3 13:24
PROVIDERS: Anesthesiology; Admitting Provider Surgery; PCP Internal Medicine; Referring Provider Surgery; Visit Provider Surgery
PROC: (CPT 19301; principal; 2020-02-26 10:15)
DX: C50.412 Malignant neoplasm of upper-outer quadrant of left female breast (principal); Z11.59 Encounter for screening for other viral diseases; Z17.0 Estrogen receptor positive status [ER+]
CPT/HCPCS: 19303; 38525; 38792; 81025; 87635; 88305; 88307; 88309; 88331; 88332; 88341; 88342; 94799; 96361; 96374; 96376; 99218; 99251; A9541; J7120; A4216; G0378; G0379; G0463; J2405; J3490; Q9968; U0003

== ENCOUNTER 2020-04-10 09:27 | Day surgery (SDC) | payer OTHER, SELFPAY ==
[2020-02-01 09:13] VITALS: BMI 20.7
--- NOTE | 2020-04-10 09:53 | HP.PCM_ITS ---
Problem List (1) Encounter for adjustment and management of vascular access device Status: Acute History of Present Illness Date of Admission: 04/10/20 The patient is a 44 year old F Here for port placement. The patient recently underwent left mastectomy and was found to have positive lymph node. She is here for port placement for access for chemotherapy. Past Medical History Past Medical History (Chronic Problems): Chronic Problems (Last Reviewed 04/08/20 @ 11:13 by Marii Muor) Estrogen receptor positive status (ER+) (Chronic) Family history of breast cancer (Chronic) Medical History: Medical History (Last Reviewed 04/08/20 @ 11:13 by Marii Muro) Breast cyst (Acute) N60.09 Breast cancer, left (Acute) C50.912 Allergies (Acute) T78.40XA Frequent headaches (Acute) R51 Estrogen receptor positive status (ER+) (Chronic) Z17.0 Allergies cephalexin [From Keflex] Allergy (Intermediate, Verified 04/08/20 11:13) Rash sulfamethoxazole [From Bactrim] Allergy (Intermediate, Verified 04/08/20 11:13) inflammation/itching/rash trimethoprim [From Bactrim] Allergy (Intermediate, Verified 04/08/20 11:13) inflammation/itching/rash gluten Allergy (Mild, Verified 04/08/20 11:13) Other abdominal pain, gas, fatigue Home Medications: Ambulatory Orders Medication Instructions Recorded lactobacillus combination no.4 3 3,000 mmu cells PO DAILY 01/17/20 billion cell capsule multivitamin 1 tab PO DAILY 01/17/20 loratadine 10 mg tablet 10 mg PO DAILY PRN 02/14/20 Acetaminophen [Tylenol Tablet] 650 mg PO Q4H PRN PRN tab 02/27/20 Ascorbic Acid [Vitamin C] 1,000 mg PO DAILY PRN 04/08/20 Dexamethasone [Decadron] 8 mg PO BID 21 Days #12 tab 04/08/20 Lidocaine/Prilocaine 1 applicatio TP DAILY PRN PRN 30 04/08/20 [Lidocaine-Prilocaine Cream] Days #1 tube Ondansetron [Ondansetron Odt] 8 mg PO Q8H PRN PRN 10 Days #30 04/08/20 tab.fernando Prochlorperazine Maleate 10 mg PO Q6H PRN PRN 10 Days #30 04/08/20 tab Surgical History: Surgical History (Last Reviewed 04/08/20 @ 11:13 by Marii Muro) History of left mastectomy (Acute) Z90.12 02/26/20 H/O cervical polypectomy (Acute) Z98.890, Z87.42 history of uterine cyst removal (Acute) Smoking Status: Never smoker Tobacco Use: Non-smoker Review of Systems Constitutional: Denies: Anorexia, Fever Eyes: Denies: Blurred vision HEENT: Denies: Difficulty Swallowing Cardiovascular: Denies: Chest Pain Respiratory: Denies: Cough Gastrointestinal: Denies: Abdominal Pain Genitourinary: Denies: Dysuria Musculoskeletal: Denies: Joint Tenderness Neurological: Denies: Balance problems Hematologic/ Lymphatic: Denies: Adenopathy VTE Information - Inpt Only VTE Present on Admission: No VTE Mechan Device Prophylaxis: SCD's Patient Problems: Active and Suspected Problems (Last Reviewed 04/08/20 @ 11:13 by Marii Muro) Encounter for education (Acute) Encounter for adjustment and management of vascular access device (Acute) - Physical Exam Vitals/I&O's: Body Mass Index (BMI) 20.0 General: Alert, Oriented x3 Neck: No JVD Lungs: Normal air movement Cardiovascular: Regular rate, Regular Rhythm Abdomen: Soft, Non Tender, Non-Distended Laboratory Results 04/10/20 09:50: Urine Test Pending Current Medications Clindamycin Phosphate 900 mg/ (Dextrose) 106 mls @ 150 mls/hr IV PREOP ONE Stop: 04/10/20 11:42 Assessment/Plan All Active Problems (Last Reviewed 04/08/20 @ 11:13 by Marii Muro) Encounter for education (Acute) Encounter for adjustment and management of vascular access device (Acute) History of left mastectomy (Acute) H/O cervical polypectomy (Acute) Breast cyst (Acute) history of uterine cyst removal (Acute) Breast cancer, left (Acute) Allergies (Acute) Frequent headaches (Acute) Regional lymph node metastasis present (Acute) Breast cancer of upper-outer quadrant of left female breast (Acute) Disproportion of reconstructed breast (Acute) 44-year-old female here for port placement 1. I discussed right chest port placement the patient in detail. I discussed the risks include but not limited to bleeding, infection, pneumothorax, DVT and line infection. The patient understands all the risks and is well to proceed with right possible left chest port placement. Quinn Gallegos MD Pager: [facility] [address] [place] [address] Office:
[2020-04-10 09:55] LABS: Internal QC Validated? YES +Cl - CLEAR BKGD; Pregnancy, Urine Negative Negative
[2020-04-10 10:06] VITALS: BP 117/78; PULSE 85; RESP 16; TEMP 36.8; O2SAT 100
[2020-04-10] MEDS: Lactated Ringers 1,000 ML 100 ML IV (10:22)
[2020-04-10] MEDS: Bupiv/Epi 0.5% Mpf 30 ML Vial (11:05)
[2020-04-10 11:15] VITALS: BP 110/72; BP 117/78; PULSE 85; RESP 18; TEMP 36.6; O2SAT 100
--- NOTE | 2020-04-10 11:16 | RAD_ITS ---
STUDY: X-RAY CHEST REASON FOR EXAM: Female, 44 years old. POST PORT PLACEMENT TECHNIQUE: Single AP portable view of the chest. COMPARISON: None. FINDINGS: Right-sided Mediport catheter in position. Left-sided axillary clips. Cardiac silhouette unremarkable. Pulmonary vascularity unremarkable. Aorta unremarkable. No focal patchy airspace opacities. No pleural effusions. Upper abdomen unremarkable. Osseous structures intact. No pneumothorax. RAD/CXR for Line Placement IMPRESSION: No acute cardiopulmonary findings Electronically Signed: Matheus Ahn DO at 13:12 EDT Tel , Service support ,
--- NOTE | 2020-04-10 11:18 | DCINST_ITS ---
Discharge Diet: No Restrictions - Pain medication may cause nausea. You should typically eat light foods as you take your pain medication. Discharge Activity: Return to Normal Activity, May Shower - with your bandage in place in 1-2 days after surgery. DO NOT SHOWER WHEN YOUR PORT IS ACCESSED. Call your doctor if your incision/area has: Continuous Slow Oozing, Sudden Increased Bleeding, Increased Pain/ Swelling, Increased Redness Call your doctor if you observe: Fever of 101 or Higher Remove Dressing in (days):: 3 - When you remove the bandage, leave the steri- strips intact until they fall off. Allergies/Adverse Reactions: Allergies cephalexin [From Keflex] Allergy (Intermediate, Verified 04/10/20 10:03) Rash sulfamethoxazole [From Bactrim] Allergy (Intermediate, Verified 04/10/20 10:03) inflammation/itching/rash trimethoprim [From Bactrim] Allergy (Intermediate, Verified 04/10/20 10:03) inflammation/itching/rash gluten Allergy (Mild, Verified 04/10/20 10:03) Other abdominal pain, gas, fatigue Medications to take at Discharge lactobacillus combination no.4 3 billion cell capsule 3,000 mmu cells PO DAILY 01/17/20 multivitamin 1 tab PO DAILY 01/17/20 loratadine 10 mg tablet 10 mg PO DAILY PRN 02/14/20 Dexamethasone [Decadron] 8 mg PO BID 21 Days #12 tab 04/08/20 Lidocaine/Prilocaine [Lidocaine-Prilocaine Cream] 1 applicatio TP DAILY PRN PRN 30 Days #1 tube 04/08/20 Ondansetron [Ondansetron Odt] 8 mg PO Q8H PRN PRN 10 Days #30 tab.rapdis 04/08/20 Prochlorperazine Maleate 10 mg PO Q6H PRN PRN 10 Days #30 tab 04/08/20 Test Results: Test results from this visit will be discussed in further detail at your follow- up appointment, if applicable. Please Follow Up With: Quinn Gallegos MD When: Please call to schedule 1 week nurse incision check [phone]
--- NOTE | 2020-04-10 11:18 | OP.PCM_ITS ---
Problem List (1) Encounter for adjustment and management of vascular access device Status: Resolved Report of Operation Date of Procedure: 04/10/20 Pre-Operative Diagnosis: Breast cancer need for vascular access for chemotherapy Post-Operative Diagnosis: Same Surgery/Procedure Performed:: Ultrasound and fluoroscopy guided chest port placement utilizing right IJ Description of Procedure: After obtaining informed consent patient was brought back to the operating room MAC anesthesia was induced and the right chest and neck were prepped in normal sterile fashion. Ultrasound was used to evaluate both IJs and the right IJ was selected. Next, using a needle, the right IJ was accessed and a guidewire was passed on into the superior vena cava under fluoroscopy guidance. A small incision was made over the puncture site and the dilator introducer was placed over the guidewire. Next this was capped and the pocket was made for the port. 1% lidocaine with epinephrine was injected in the proposed port site. An incision was made with scalpel. Electrocautery was used to make a pocket under the skin and subcutaneous tissue. Hemostasis was obtained. Next, the catheter was tunneled up to the neck incision site and placed through the introducer. The peel-away introducer was removed and the position of the catheter was confirmed on fluoroscopy. Next, the catheter was trimmed and attached to the port with the locking device. Interrupted 2-0 Vicryl sutures were used to anchor the port to the chest wall and then the port was placed inside the pocket. The pocket was then flushed with saline and the port irrigated with saline. There was good blood return and the port flushed easily. Next, heparin was injected into the port. The skin was closed with subcutaneous interrupted 3-0 Vicryl sutures. A single 3-0 Vicryl sutures placed under the skin at the neck incision site. Steri-Strips were placed as well as op sites. Patient tolerated procedure well, was taken to PACU in stable condition. Chest x-ray will be obtained. Grafts/Implants Used: 8 [place] [employer] - Admit VTE Documentation VTE Mechan Device Prophylaxis: SCD's
[2020-04-10 11:20] VITALS: BP 105/74; BP 117/78; PULSE 76; RESP 18; O2SAT 98
[2020-04-10 11:25] VITALS: BP 108/75; BP 117/78; PULSE 75; RESP 18; O2SAT 100
[2020-04-10 11:35] VITALS: BP 107/71; BP 117/78; PULSE 79; RESP 18; TEMP 36.3; O2SAT 99
[2020-04-10 13:42] VITALS: BP 117/78; BP 98/59; PULSE 72; RESP 16; TEMP 36.3; O2SAT 97
== END 2020-04-10 13:49 | disposition home or self-care (01) ==
LOC: SDC 09:28 → AC 09:28
PROVIDERS: Anesthesiology; PCP Internal Medicine; Referring Provider Surgery; Visit Provider Surgery
PROC: (CPT 36561; principal; 2020-04-10 10:45)
DX: Z45.2 Encounter for adjustment and management of vascular access device (principal); C50.412 Malignant neoplasm of upper-outer quadrant of left female breast; Z11.59 Encounter for screening for other viral diseases; Z17.0 Estrogen receptor positive status [ER+]; Z90.12 Acquired absence of left breast and nipple; Z80.3 Family history of malignant neoplasm of breast; Z79.899 Other long term (current) drug therapy; C77.9 Secondary and unspecified malignant neoplasm of lymph node, unspecified; N65.1 Disproportion of reconstructed breast
CPT/HCPCS: 36561; 71045; 77001; 81025; 87635; J7120; C1788; U0003

== ENCOUNTER 2020-07-26 14:28 | Outpatient (RCR) | payer OTHER, SELFPAY ==
[2020-07-12 11:11] VITALS: BMI 20.9
[2020-07-18 14:20] VITALS: BMI 20.7
== END 2020-07-26 23:59 ==
LOC: IMMUN 14:28
PROVIDERS: PCP Internal Medicine; Visit Provider Family Medicine
DX: Z23 Encounter for immunization (principal)
CPT/HCPCS: 0011A; 0012A; 91301

== ENCOUNTER → 2020-08-08 15:08 | Outpatient (CLI) | payer OTHER, SELFPAY ==
[2020-07-12 11:11] VITALS: BMI 20.9
[2020-08-01 13:29] VITALS: BMI 20.5
--- NOTE | 2020-08-08 15:15 | BD_ITS ---
STUDY: DUAL ENERGY X-RAY ABSORPTIOMETRY / DXA REASON FOR EXAM: Female, 44 years old. Pat is 133.3# and 68 and quot;. Hx of recent left breast CA with a mastectomy. Takes a multi-vit and exercises a little to moderately. TECHNIQUE: Bone Mineral Density (BMD) measurements of lumbar spine and bilateral hips were obtained. COMPARISON: None. FINDINGS: Lumbar Spine (L1-L4): g/cm2 (1.360) / T-score (1.5) / Z-score (1.5) Findings are suggestive of normal bone density with a low fracture risk. Left Femur Total: g/cm2 (0.900) / T-score (-0.9) / Z-score (-0.6) Left Femoral Neck: g/cm2 (0.859) / T-score (-1.3) / Z-score (-0.8) Right Femur Total: g/cm2 (0.860) / T-score (-1.2) / Z-score (-0.9) Right Femoral Neck: g/cm2 (0.878) / T-score (-1.2) / Z-score (-0.6) BD/Dexa Bone Density Study IMPRESSION: The patient is considered osteopenic as outlined below according to World [employer] Organization (WHO) criteria with a low fracture risk. Reference Information: The T-score is the number of standard deviations above or below the standard which is normal for young adults at their peak bone mineral density. The World Health Organization (WHO) interprets the T-scores as follows: Above -1 Normal bone density Between -1 and -2.5 Osteopenia Equal to / or below -2.5 Osteoporosis As a practical clinical guideline, osteopenia may be graded as follows: Mild -1 through -1.5 Moderate -1.6 through -2.0 Severe -2.1 through -2.4 The Z-score is the number of standard deviations above or below age-matched controls. A Z-score of less than -1.5 would be considered abnormal. References: 1. NIH Osteoporosis and Related Bone Diseases www osteo.org 2. International Society for Clinical Densitometry www iscd.org 3. National Osteoporosis Foundation www nof.org Electronically Signed: Carlin Encinas MD at 9:37 EST , Service support ,
== END ==
PROVIDERS: PCP Internal Medicine; Referring Provider Nurse Practitioner Family; Visit Provider Nurse Practitioner Family
DX: Z13.820 Encounter for screening for osteoporosis (principal); E28.39 Other primary ovarian failure
CPT/HCPCS: 77080

== ENCOUNTER → 2020-10-25 14:32 | Outpatient (CLI) | payer OTHER, SELFPAY ==
[2020-07-12 11:11] VITALS: BMI 20.9
[2020-10-25 13:58] VITALS: BMI 19.9
[2020-10-25 15:26] LABS: Cholesterol 166 mg/dL (200); High Density Lipoprotein 73 mg/dL; Triglycerides 124 mg/dL; Very Low Density Lipoprotein 25 mg/dL (5-40)
== END ==
PROVIDERS: PCP Internal Medicine; Referring Provider Internal Medicine; Visit Provider Internal Medicine
DX: Z00.00 Encounter for general adult medical examination without abnormal findings (principal)
CPT/HCPCS: 36415; 80061

== ENCOUNTER → 2020-12-16 | Outpatient (CLI) | payer OTHER, SELFPAY ==
[2020-07-12 11:11] VITALS: BMI 20.9
[2020-12-16 09:13] VITALS: BMI 19.9
== END | disposition home or self-care (01) ==
LOC: LABSPEC 12:28
PROVIDERS: PCP Internal Medicine; Referring Provider Nurse Practitioner Women's Health; Visit Provider Nurse Practitioner Women's Health
DX: N76.0 Acute vaginitis (principal)
CPT/HCPCS: 87070; 87205

== ENCOUNTER → 2021-01-24 07:04 | Outpatient (CLI) | payer OTHER, SELFPAY ==
[2020-07-12 11:11] VITALS: BMI 20.9
[2021-01-16 14:41] VITALS: BMI 20.1
--- NOTE | 2021-01-24 07:06 | BI_ITS ---
MAMMOGRAPHY - UNILATERAL SCREENING: RIGHT BREAST REASON FOR EXAM: Female, 45 years old. Routine annual screening examination (unilateral). PERTINENT HISTORY: Personal history of breast cancer. Status post left mastectomy. Grandmothers with breast cancer. TECHNIQUE: Digital unilateral breast home (3D mammographic acquisition) in the CC and MLO projections. 2-D mediolateral oblique (MLO) and craniocaudad (CC) views of both breasts were obtained. CAD: Full Field Digital Mammography with Computer Added Detection was performed. COMPARISON: Comparison is made with prior study dated 12/13/2019 and 12/06/2018. FINDINGS: Breast Composition: The breasts are extremely dense, which lowers the sensitivity of mammography. There are no dominant masses or suspicious calcifications. No other significant abnormalities are identified. There has been no significant change since the prior study. BI/SCREEN MAMM (CAD) W/HOME UNI R IMPRESSION: Stable unilateral screening mammogram. Yearly follow-up mammogram recommended. (A) ASSESSMENT CATEGORY: BIRADS Category 2: Benign. A letter regarding these results will be sent to the patient by the facility within 30 days. Approximately 10% of breast cancers are not detected by mammography. A normal mammogram should not delay biopsy of a clinically suspicious abnormality. [id number] Electronically Signed: Carlin Encinas MD at 8:52 EDT , Service support ,
== END ==
PROVIDERS: PCP Internal Medicine; Referring Provider Internal Medicine Hematology & Oncology; Visit Provider Internal Medicine Hematology & Oncology
DX: Z12.31 Encounter for screening mammogram for malignant neoplasm of breast (principal); Z90.12 Acquired absence of left breast and nipple; Z85.3 Personal history of malignant neoplasm of breast
CPT/HCPCS: 77063; 77067

== ENCOUNTER → 2021-02-03 | Outpatient (CLI) | payer OTHER, SELFPAY ==
[2020-07-12 11:11] VITALS: BMI 20.9
[2021-02-03 11:30] VITALS: BMI 20.1
[2021-02-07 08:41] LABS: HPV APTIMA, High Risk Negative (Negative)
== END | disposition home or self-care (01) ==
PROVIDERS: PCP Internal Medicine; Referring Provider Obstetrics & Gynecology; Visit Provider Obstetrics & Gynecology
DX: Z12.4 Encounter for screening for malignant neoplasm of cervix (principal); N89.8 Other specified noninflammatory disorders of vagina
CPT/HCPCS: 87070; 87205; 87624; 88175; G0145

== ENCOUNTER → 2022-01-15 | Outpatient (CLI) | payer OTHER, SELFPAY ==
[2020-07-12 11:11] VITALS: BMI 20.9
[2022-01-15 12:49] LABS: Erythrocyte Sedimentation Rate 1 mm/hr (0-30)
[2022-01-15 13:15] LABS: Vitamin B12 786 pg/mL (211-911)
[2022-01-15 13:47] LABS: CRP < 2.90 mg/L (0.0-3.0)
[2022-01-16 17:07] LABS: Endomysial Antibody IgA Negative (Negative)
[2022-01-16 20:20] LABS: Immunoglobulin A 159 mg/dL (87-352); t-Transglutaminase IgA <2 U/mL (0-3)
[2022-01-18 09:07] LABS: Cytoplasmic Ab (C-ANCA) <1:20 titer (Neg:<1:20); Immunoglobulin A 157 mg/dL (87-352); Immunoglobulin E 82 IU/mL (6-495); Immunoglobulin G 958 mg/dL (586-1602)
[2022-01-18 10:37] LABS: Immunoglobulin M 137 mg/dL (26-217); Perinuclear Ab (P-ANCA) <1:20 titer (Neg:<1:20)
[2022-01-18 20:22] LABS: Vitamin D 1,25-Dihydroxy 31.1 pg/mL (24.8-81.5)
== END | disposition home or self-care (01) ==
LOC: LAB 11:04
PROVIDERS: PCP Internal Medicine; Visit Provider Internal Medicine Gastroenterology
DX: K59.00 Constipation, unspecified (principal)
CPT/HCPCS: 36415; 82306; 82607; 82652; 82746; 82784; 82785; 83516; 85652; 86140; 86255; 86256

== ENCOUNTER → 2022-01-19 | Outpatient (CLI) | payer OTHER, SELFPAY ==
[2020-07-12 11:11] VITALS: BMI 20.9
[2022-01-23 07:49] LABS: Calprotectin, Stool 18 ug/g (0-120)
[2022-01-24 08:19] LABS: Pancreatic Elastase, Fecal < 50 (>200)
== END | disposition home or self-care (01) ==
PROVIDERS: PCP Internal Medicine; Visit Provider Internal Medicine Gastroenterology
DX: K59.00 Constipation, unspecified (principal); K58.9 Irritable bowel syndrome, unspecified
CPT/HCPCS: 82653; 83630; 83993; 87177; 87209

== ENCOUNTER → 2022-01-26 | Outpatient (CLI) | payer OTHER, SELFPAY ==
[2020-07-12 11:11] VITALS: BMI 20.9
--- NOTE | 2022-01-26 09:54 | BI_ITS ---
MAMMOGRAPHY - UNILATERAL SCREENING: RIGHT BREAST REASON FOR EXAM: Female, 46 years old. Routine annual screening examination (unilateral). PERTINENT HISTORY: Personal history of breast cancer. Prior left mastectomy. Grandmother with breast cancer. TECHNIQUE: Digital unilateral breast home (3D mammographic acquisition) in the CC and MLO projections. 2-D mediolateral oblique (MLO) and craniocaudad (CC) views of both breasts were obtained. CAD: Full Field Digital Mammography with Computer Added Detection was performed. COMPARISON: Comparison is made with prior study dated 01/24/2021 and 01/12/2020. FINDINGS: Breast Composition: The breasts are extremely dense, which lowers the sensitivity of mammography. There are no dominant masses or suspicious calcifications. No other significant abnormalities are identified. There has been no significant change since the prior study. BI/SCREEN MAMM (CAD) W/HOME UNI R IMPRESSION: Stable unilateral screening mammogram. Yearly follow-up mammogram recommended. (A) ASSESSMENT CATEGORY: BIRADS Category 1: Negative. A letter regarding these results will be sent to the patient by the facility within 30 days. Approximately 10% of breast cancers are not detected by mammography. A normal mammogram should not delay biopsy of a clinically suspicious abnormality. [id number] Electronically Signed: Carlin Encinas MD at 10:47 EDT ,
== END | disposition home or self-care (01) ==
LOC: OPBI 09:53
PROVIDERS: PCP Internal Medicine; Visit Provider Internal Medicine Hematology & Oncology
DX: Z12.31 Encounter for screening mammogram for malignant neoplasm of breast (principal); Z80.3 Family history of malignant neoplasm of breast; Z90.12 Acquired absence of left breast and nipple
CPT/HCPCS: 77063; 77067

== ENCOUNTER → 2022-02-13 | Outpatient (CLI) | payer OTHER, SELFPAY ==
[2020-07-12 11:11] VITALS: BMI 20.9
== END | disposition home or self-care (01) ==
LOC: LABSPEC 11:42
PROVIDERS: PCP Internal Medicine; Referring Provider Obstetrics & Gynecology; Visit Provider Obstetrics & Gynecology
DX: N89.8 Other specified noninflammatory disorders of vagina (principal)
CPT/HCPCS: 87070; 87205

== ENCOUNTER 2022-03-02 05:32 | Day surgery (SDC) | payer OTHER, SELFPAY ==
[2020-07-12 11:11] VITALS: BMI 20.9
[2022-03-02 06:06] VITALS: BP 109/81; PULSE 78; RESP 18; TEMP 36.2; O2SAT 100; BMI 21.1
[2022-03-02 06:09] LABS: Internal QC Validated? YES +Cl - CLEAR BKGD; Pregnancy, Urine Negative Negative
[2022-03-02] MEDS: Lactated Ringers 1,000 ML 15 ML IV (06:22)
--- NOTE | 2022-03-02 06:27 | PCM.HP.BLA ---
History and Physical Date of Admission: 03/02/22 ?46 F who presents to the office today for Initial consult. Hui established with this clinic 01.15.22 with referral from her oncologist. Currently she is having abnormal bowel movements. She is having a BM 2-3 times a week with a hard stool that is either a small amount of hard chela or a larger movement with a log of chela; prior to larger BM she has lower abdominal discomfort that resolves following BM. Blood can be present usually with a larger BM on tissue and sometimes on the stool. She has increased water, added prunes and fiber and this has helped somewhat. This was significantly worse following chemotherapy and with use of iron at that time and has improved since then; she used stool softeners that caused diarrhea. Prior to chemotherapy she was very regular without hard stools. Reports gluten intolerance with celiac testing not abnormal. 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 No history of colonoscopy. ROS Const Constitutional: No anorexia, fatigue, fever(s), weight change or sleep problems Eyes Eyes: No change in vision ENT ENT: No abnormal hearing, difficulty swallowing, mouth lesions, tongue swelling or throat swelling Resp Respiratory: No cough or shortness of breath Cardio Cardiology: No chest pain at rest, chest pain with exertion, shortness of breath or dyspnea on exertion Gastro GI: No difficulty swallowing Genitourinary-Female: No difficulty urinating or burning urination Musc Musculoskeletal: No joint pain, joint swelling, muscle weakness or decreased muscle mass Skin Skin: No hair loss in leg, yellowing of the eye, itchy eyes, rash, skin ulcer or skin swelling Neuro Neurology: No abnormal hearing, abnormal movements, confusion, unsteady gait/balance or memory loss Psych Psychiatric: No anxiety, No confusion and No memory loss Endo Endocrine: No fatigue or weight change Aller/Imm Allergy/Immunologic: No itchy eyes, throat swelling or tongue swelling Vargas/Lymp Hematologic/Lymphatic: No easy bleeding, easy bruising or enlarged lymph nodes Exam Const General: cooperative and comfortable Nutritional Appearance: average body habitus and well nourished HENMS Head: normal to inspection Ears: hearing grossly normal bilaterally Nose: external nose normal Face and sinus: normal facial exam Mouth: oral mucosae normal Throat: posterior oropharynx normal Eyes General: appearance normal, both eyes and all related structures Neck Neck: normal visual inspection Chest Chest palpation & inspection: normal inspection of the chest and normal palpation of entire chest wall Resp Effort & Inspection: normal respiratory effort Auscultation: Bilateral: Clear to Auscultation Cardio Palpation: normal PMI Rate: regular rate Rhythm: regular rhythm GI Inspection: normal to inspection Auscultation: normal bowel sounds Percussion: normal to percussion Palpation: no hepatosplenomegaly Skin General: no rashes or lesions noted Neuro General: patient alert Extrem General: normal to inspection Psych Affect: normal affect Quality Reporting Tobacco Screening ([facility] 138) Smoking Status: Never smoker Assessment and Plan Assessment and Plan (1) Constipation: ?Status:?Acute ?Plan: Constipation is a pretty common entity after undergoing systemic chemotherapy for breast cancer.? There is also complication of estrogen nellie therapy in particular tamoxifen or raloxifene therapy.? I suggested for her to add Fiber Choice 1 tab in the morning and the evening as she is already increasing her insoluble fiber intake. (2) Gluten intolerance: ?Status:?Acute ?Plan: We will get a repeat celiac test with serum IgA to see if she truly has celiac disease or just a gluten intolerance. (3) Screening for colon cancer: ?Status:?Acute ?Plan: She will undergo screening colonoscopy.? She was explained alternatives, benefits, risk including outstanding bleeding, infection, sepsis, perforation, need for emergent urgent .? She will have an ASA of 1. ? ? ? Orders: I have re-examined the patient. There are no clinical changes since date of exam.
[2022-03-02 07:09] VITALS: BP 102/83; BP 109/81; PULSE 73; RESP 14; TEMP 36.4; O2SAT 98
--- NOTE | 2022-03-02 07:13 | OP.COLON_ITS ---
Patient Name: Hui Vargas Procedure Date: 03/02/2022 6:15 AM Date of : 1975 Age: 46 Procedure: Colonoscopy Indications: Screening for colorectal malignant neoplasm Providers: Federico Godinez DO Medicines: Monitored Anesthesia Care Patient Profile: This is a 46 year old female. Refer to note in patient chart for documentation of history and physical. Last Colonoscopy: none. The patient's first colonoscopy is today. Complications: No immediate complications. Procedure: Pre-Anesthesia Assessment: - Prior to the procedure, a History and Physical was performed, and patient medications and allergies were reviewed. The patient is competent. The risks and benefits of the procedure and the sedation options and risks were discussed with the patient. All questions were answered and informed consent was obtained. Patient identification and proposed procedure were verified by the physician in the pre-procedure area. Mental Status Examination: alert and oriented. Airway Examination: normal oropharyngeal airway and neck mobility. Respiratory Examination: clear to auscultation. CV Examination: normal. Prophylactic Antibiotics: The patient does not require prophylactic antibiotics. Prior Anticoagulants: The patient has taken no previous anticoagulant or antiplatelet agents. ASA Grade Assessment: II - A patient with mild systemic disease. After reviewing the risks and benefits, the patient was deemed in satisfactory condition to undergo the procedure. The anesthesia plan was to use moderate sedation / analgesia (conscious sedation). Immediately prior to administration of medications, the patient was re-assessed for adequacy to receive sedatives. The heart rate, respiratory rate, oxygen saturations, blood pressure, adequacy of pulmonary ventilation, and response to care were monitored throughout the procedure. The physical status of the patient was re-assessed after the procedure. After I obtained informed consent, the scope was passed under direct vision. Throughout the procedure, the patient's blood pressure, pulse, and oxygen saturations were monitored continuously. The colonoscope was introduced through the anus and advanced to the terminal ileum. The colonoscopy was performed without difficulty. The patient tolerated the procedure well. The quality of the bowel preparation was good. Scope In: 6:49:10 AM Scope Withdrawal Time 0 hours 9 minutes 14 seconds Scope Out: 7:05:38 AM Total Procedure Duration Time 0 hours 16 minutes 28 seconds Findings: The perianal and digital rectal examinations were normal. The recto-sigmoid colon and sigmoid colon were moderately tortuous. No additional abnormalities were found on retroflexion. An anal fissure was found on perianal exam. Impression: - Tortuous colon. - Anal fissure found on perianal exam. - No specimens collected. Recommendation: - Discharge patient to home. - Resume previous diet. - Continue present medications. - Await pathology results. - Repeat colonoscopy in 10 years for screening purposes. - Return to GI office. Procedure Code(s): --- Professional --- G0121, Colorectal cancer screening; colonoscopy on individual not meeting criteria for high risk CPT copyright 2017 [employer]. All rights reserved. The codes documented in this report are preliminary and upon hall clerk review may be revised to meet current compliance requirements. Federico Godinez DO 03/02/2022 7:12:30 AM This report has been signed electronically. Number of Addenda: 1 Note Initiated On: 03/02/2022 6:15 AM Addendum Number: 1 Addendum Date: 04/09/2022 6:03:22 AM MAC was used as sedation for this procedure. Federico Godinez DO 04/09/2022 6:03:25 AM This report has been signed electronically.
--- NOTE | 2022-03-02 07:14 | OP.CCLET_ITS ---
04/09/2022 Raya Dillard MD [address] [place] [address] [place] [address] Re : Colonoscopy procedure for Hui Vargas Dear Dr. Dillard This procedure was performed on Wednesday, March 02, 2022. My impressions and recommendations are as follows: Impressions : - Tortuous colon. - Anal fissure found on perianal exam. - No specimens collected. Recommendations : - Discharge patient to home. - Resume previous diet. - Continue present medications. - Await pathology results. - Repeat colonoscopy in 10 years for screening purposes. - Return to GI office. My findings are described in the full procedure note, which is enclosed. If I can be of further assistance, please feel free to contact me at . Sincerely, Federico Godinez, 03/02/2022 7:12:30 AM This report has been signed electronically.
[2022-03-02 07:15] VITALS: BP 103/71; BP 109/81; PULSE 67; RESP 14; O2SAT 98
[2022-03-02 07:20] VITALS: BP 109/70; BP 109/81; PULSE 66; RESP 14; O2SAT 100
[2022-03-02 07:25] VITALS: BP 105/69; BP 109/81; PULSE 64; RESP 14; TEMP 36.3; O2SAT 100
[2022-03-02 07:38] VITALS: BP 109/81
== END 2022-03-02 07:55 | disposition home or self-care (01) ==
LOC: EN 05:33 → AC 05:34
PROVIDERS: Anesthesiology; PCP Internal Medicine; Referring Provider Internal Medicine; Visit Provider Internal Medicine Gastroenterology
PROC: 0DJD8ZZ Inspection of Lower Intestinal Tract, Via Natural or Artificial Opening Endoscopic (ICD-10-PCS; CPT 45378; principal; 2022-03-02 06:25)
DX: Z12.11 Encounter for screening for malignant neoplasm of colon (principal); K60.2 Anal fissure, unspecified; Q43.8 Other specified congenital malformations of intestine; K90.41 Non-celiac gluten sensitivity; Z85.3 Personal history of malignant neoplasm of breast; Z92.21 Personal history of antineoplastic chemotherapy; Z92.3 Personal history of irradiation
CPT/HCPCS: G0121; 81025; J7120; J2405

== ENCOUNTER → 2022-08-26 | Outpatient (CLI) | payer OTHER, SELFPAY ==
[2022-06-22 08:12] VITALS: BMI 20.9
--- NOTE | 2022-08-26 10:22 | BD_ITS ---
STUDY: DUAL ENERGY X-RAY ABSORPTIOMETRY / DXA REASON FOR EXAM: Female, 46 years old. Screening for osteoporosis TECHNIQUE: Bone Mineral Density (BMD) measurements of lumbar spine and bilateral hips were obtained. COMPARISON: Comparison is made with prior study dated 08/08/2020. FINDINGS: Lumbar Spine (L1-L4): g/cm2 (1.220) / T-score (1.6) / Z-score (2.1) Findings are suggestive of normal bone density with a low fracture risk. Left Femur Total: g/cm2 (0.850) / T-score (-0.8) / Z-score (-0.4) Left Femoral Neck: g/cm2 (0.786) / T-score (-0.6) / Z-score (-0.1) Right Femur Total: g/cm2 (0.850) / T-score (-0.8) / Z-score (-0.4) Right Femoral Neck: g/cm2 (0.775) / T-score (-0.7) / Z-score (0.2) The T-Scores on the most recent prior examination were: Lumbar Spine (L1-L4): There has been improvement of bone density since the previous examination. Left Femur Total: which represents an improvement of 1.6%. Right Femur Total: which represents an improvement of 6.5%. BD/Dexa Bone Density Study IMPRESSION: The patient is considered normal as outlined below according to World [employer] Organization (WHO) criteria with a low fracture risk. There has been improvement of bone density since the previous examination. Reference Information: The T-score is the number of standard deviations above or below the standard which is normal for young adults at their peak bone mineral density. The World Health Organization (WHO) interprets the T-scores as follows: Above -1 Normal bone density Between -1 and -2.5 Osteopenia Equal to / or below -2.5 Osteoporosis As a practical clinical guideline, osteopenia may be graded as follows: Mild -1 through -1.5 Moderate -1.6 through -2.0 Severe -2.1 through -2.4 The Z-score is the number of standard deviations above or below age-matched controls. A Z-score of less than -1.5 would be considered abnormal. References: 1. NIH Osteoporosis and Related Bone Diseases www osteo.org 2. International Society for Clinical Densitometry www iscd.org 3. National Osteoporosis Foundation www nof.org Electronically Signed: Carlin Encinas MD at 8:56 EST ,
== END | disposition home or self-care (01) ==
PROVIDERS: PCP Internal Medicine; Visit Provider Nurse Practitioner Family
DX: C50.412 Malignant neoplasm of upper-outer quadrant of left female breast (principal); C77.9 Secondary and unspecified malignant neoplasm of lymph node, unspecified; Z17.0 Estrogen receptor positive status [ER+]
CPT/HCPCS: 77080

== ENCOUNTER → 2022-11-05 | Outpatient (CLI) | payer OTHER, SELFPAY ==
[2022-06-22 08:12] VITALS: BMI 20.9
[2022-11-05 17:37] LABS: Erythrocyte Sedimentation Rate 2 mm/hr (0-30)
[2022-11-05 18:19] LABS: CRP < 2.90 mg/L (0.0-3.0); Iron 47 ug/dL (50-170); Iron Binding Capacity,Total 345 ug/dL (250-450); Thyroid Stim Hormone (TSH) 1.43 uIU/mL (0.358-3.74)
[2022-11-05 18:20] LABS: Ferritin 203 ng/mL (8-252); PERCENT IRON SATURATION 13.6 % (15.0-55.0)
[2022-11-05 18:53] LABS: Vitamin B12 718 pg/mL (211-911)
[2022-11-09 13:08] LABS: ANTINUCLEAR ANTIBODIES DIRECT Negative (Negative)
== END | disposition home or self-care (01) ==
LOC: BIMLAB 16:10
PROVIDERS: PCP Internal Medicine; Referring Provider Nurse Practitioner Family; Visit Provider Nurse Practitioner Family
DX: R53.83 Other fatigue (principal); R53.1 Weakness; E56.9 Vitamin deficiency, unspecified; D64.9 Anemia, unspecified
CPT/HCPCS: 36415; 82306; 82607; 82728; 83540; 83550; 84443; 85652; 86038; 86140; 86225; 86235

== ENCOUNTER → 2022-12-01 | Outpatient (CLI) | payer OTHER, SELFPAY ==
[2022-06-22 08:12] VITALS: BMI 20.9
== END | disposition home or self-care (01) ==
PROVIDERS: PCP Internal Medicine; Referring Provider Nurse Practitioner Family; Visit Provider Nurse Practitioner Family
DX: R07.9 Chest pain, unspecified (principal)
CPT/HCPCS: 93005

== ENCOUNTER → 2023-02-04 | Outpatient (CLI) | payer OTHER, SELFPAY ==
[2022-06-22 08:12] VITALS: BMI 20.9
--- NOTE | 2023-02-04 12:39 | MRI_ITS ---
STUDY: BILATERAL BREAST MR WITHOUT AND WITH CONTRAST REASON FOR EXAM: Female, 47 years old. Grandmother with breast cancer. History of left breast cancer status post mastectomy. Dense fibroglandular tissue. TECHNIQUE: Multi-sequence multi-echo imaging of both breasts was performed with a dedicated breast coil. T1-weighted and T2-weighted images were performed before the administration of contrast. T1-weighted images were also performed after the intravenous administration of 13 mL of Clariscan contrast. COMPARISON: Right mammogram dated January 26, 2022. FINDINGS: RIGHT BREAST: Heterogeneously dense fibroglandular tissue with no significant background enhancement. No abnormal enhancing masses or areas of non-mass enhancement in the right breast. LEFT BREAST: Left mastectomy changes with no significant background enhancement. No abnormal enhancing masses or areas of non-mass enhancement in the left breast. No enlarged or abnormal lymph nodes. No abnormality in the visualized regions of the chest or liver. MRI/Breast Bilateral W/O and W IMPRESSION: Status post left mastectomy with no other abnormality on the breast MRI study with contrast. Yearly follow-up mammogram alternating with breast MRI with contrast would be appropriate. CATEGORY: BIRADS Category 2: Benign. A letter regarding these results will be sent to the patient by the facility within 30 days. Electronically Signed: Jhonny France MD at 16:03 EDT ,
== END | disposition home or self-care (01) ==
LOC: MRI 12:33
PROVIDERS: PCP Internal Medicine; Referring Provider Student in an Organized Health Care Education/Training Program; Visit Provider Student in an Organized Health Care Education/Training Program
DX: R92.2 Inconclusive mammogram (principal); Z90.12 Acquired absence of left breast and nipple; Z85.3 Personal history of malignant neoplasm of breast
CPT/HCPCS: 77049; A9575; A4216; C8908

== ENCOUNTER → 2023-02-18 | Outpatient (CLI) | payer OTHER, SELFPAY ==
[2022-06-22 08:12] VITALS: BMI 20.9
== END | disposition home or self-care (01) ==
PROVIDERS: PCP Internal Medicine; Visit Provider Obstetrics & Gynecology
DX: B37.32 Chronic candidiasis of vulva and vagina (principal)
CPT/HCPCS: 87070; 87205

== ENCOUNTER → 2023-04-27 | Outpatient (CLI) | payer OTHER, SELFPAY ==
[2022-06-22 08:12] VITALS: BMI 20.9
--- NOTE | 2023-04-27 14:31 | US_ITS ---
INDICATION: hx of breast cancer EXAMINATION: Ultrasound US Pelvis Non OB Complete With Transvaginal Imaging TECHNIQUE: Transabdominal and transvaginal pelvic ultrasound was performed. Grayscale, spectral waveform, and color flow Doppler evaluation of the adnexa. COMPARISON: None. FINDINGS: UTERUS: Retroverted. The uterus measures 6.3 x 4.1 x 2.8 cm. There is no uterine mass. The endometrial stripe measures 4 mm in AP diameter which is within normal limits. IUD is in place. RIGHT OVARY: Measures 2.7 x 2.2 x 1.9 cm. Non-enlarged, normal echogenicity. There is normal arterial inflow and venous outflow present in the right ovary. LEFT OVARY: Measures 1.9 x 1.2 x 1 cm. Non-enlarged, normal echogenicity. There is normal arterial inflow and venous outflow present in the left ovary. FREE FLUID: None. US/Pelvic (Non ) IMPRESSION: Normal pelvic ultrasound. Electronically Signed: Mahesh Porter MD at 20:29 EDT ,
== END | disposition home or self-care (01) ==
LOC: US 14:30
PROVIDERS: PCP Internal Medicine; Referring Provider Obstetrics & Gynecology; Visit Provider Obstetrics & Gynecology
DX: C50.412 Malignant neoplasm of upper-outer quadrant of left female breast (principal)
CPT/HCPCS: 76830; 76856

== ENCOUNTER 2023-05-11 13:11 | Day surgery (SDC) | payer OTHER, SELFPAY ==
[2022-06-22 08:12] VITALS: BMI 20.9
[2023-05-07 14:19] LABS: Hematocrit 37.5 % (37-47); Hemoglobin 12.4 g/dL (12.0-15.0); Mean Corp Hgb Conc 33.1 g/dL (32-36); Mean Corpuscular Hgb 30.4 pg (27.0-32.0); Mean Corpuscular Volume 91.9 fL (81-99); Mean Platelet Vol. 10.4 fl (6.2-12.0); Platelet Count 182 K/mm3 (150-450); RBC Distribution Width CV 12.2 % (11.6-14.6); RBC Distribution Width SD 41.1 fl (35.1-43.9); Red Blood Count 4.08 M/mm3 (4.2-5.4); White Blood Count 6.1 K/mm3 (4.4-11.0)
--- NOTE | 2023-05-09 14:15 | PCM.HP.BLA ---
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 Is patient in pain?: No Allergies cephalexin [From Keflex] Adverse Reaction (Severe, Verified 05/03/23 15:35) Rashsulfamethoxazole [From Bactrim] Adverse Reaction (Severe, Verified 05/03/23 15:35) Swellinggluten Adverse Reaction (Intermediate, Verified 05/03/23 15:35) Upset Stomachtrimethoprim [From Bactrim] Adverse Reaction (Verified 05/03/23 15:35) Swelling Medications lactobacillus combination no.4 3 billion cell capsule (Probiotic) 3,000 mmu cells PO DAILY supplement 01/17/20 [History Confirmed 05/07/23] multivitamin 1 tablet PO DAILY supplement 01/17/20 [History Confirmed 05/07/23] calcium carbonate 600 mg calcium (1,500 mg) tablet 600 mg PO BID 09/26/20 [History Confirmed 05/07/23] cholecalciferol (vitamin D3) 10 mcg (400 unit) capsule 400 unit PO BID 09/26/20 [History Confirmed 05/07/23] denosumab 60 mg/mL subcutaneous syringe (Prolia) 60 mg subcut [id number] 10/25/20 [History Confirmed 05/07/23] leuprolide 3.75 mg intramuscular syringe kit (Lupron Depot) 3.75 mg IM QMONTH 10/25/20 [History Confirmed 05/07/23] fiber 1 tab PO PRN 02/19/22 [History Confirmed 05/07/23] tamoxifen 20 mg tablet See Rx Instructions .Route .COMPLEX #60 tabs 05/05/22 [Rx Confirmed 05/07/23] ascorbic acid (vitamin C) 1,000 mg tablet 1 g PO DAILY 01/06/23 [History Confirmed 05/07/23] ferrous sulfate 250 mg (50 mg iron) tablet,extended release (Slow Release Iron) 250 mg PO DAILY 01/06/23 [History Confirmed 05/07/23] fluconazole 150 mg tablet 150 mg PO ONCE #13 tabs 05/07/23 [Rx Confirmed 05/07/23] fluconazole 150 mg tablet 150 mg PO QWEEK #24 tabs 05/07/23 [Rx Confirmed 05/07/23] ubpguo-kndwurkh-fobluiz 36,000-114,000-180,000 unit capsule,delay rel (Creon) See Rx Instructions PO .COMPLEX #180 caps 05/07/23 [Rx Confirmed 05/07/23] Post menopausal: No Patient : No : No PFSH Medical History (Updated 05/03/23 @ 15:47 by Bee Varghese) Alcohol use Allergies Back pain Breast cancer, left Breast cyst Cancer Chest pain COVID Dietary restriction Easy bruising Estrogen receptor positive status (ER+) Family history of breast cancer Fatigue Frequent headaches Heartburn Nasal congestion Non-smoker Seasonal allergies Vitamin deficiency Weakness Wears contact lenses Wears glasses Yeast infection Surgical History (Updated 05/03/23 @ 15:47 by Bee Varghese) H/O cervical polypectomy History of left mastectomy History of removal of Port-a-Cath Hx of colonoscopy Hx of ovarian cystectomy Family History Mother High cholesterol ArthritisBrother Hodgkin lymphoma High cholesterolGrandmother Breast cancer, Onset Age: 68 MaternalFather HypertensionUncle Heart disease paternal Myocardial infarction paternalGrandfather Pancreatic cancer maternalGrandmother Breast cancer Diagnosed at 85, passed at 91 Social History Smoking Status: Never smoker alcohol intake: current alcohol intake frequency: holidays/special occasions only substance use type: does not use what type of physical activity do you participate in: walking and yoga frequency: 1-2 times per week seatbelt use: always do you feel safe at home: Yes additional social history: Single-Boyfriend- [employer] 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 History 0 Elective abortions Hx Para Spontaneous abortions Hx # Term Pregnancies Ectopic pregnancies Hx # Pregnancies Multiple births # of living children ROS Const Constitutional: Denies fatigue, fever(s), headache(s), increased appetite, poor appetite, weight gain or weight loss GI GI: Reports as per HPI; Denies abdominal pain, constipation, nausea or vomiting : Reports as per HPI; Denies difficulty voiding, dysuria, hematuria, pelvic pain, urinary frequency, urinary incontinence, urinary hesitancy, urinary urgency, vaginal discharge, vaginal dryness, vaginal odor, vaginal pruritus or other Exam Const General: cooperative, healthy appearing, comfortable, no acute distress and well developed Orientation: alert HENMT Head: normal to inspection and normocephalic Ears: hearing grossly normal bilaterally and external ears normal Nose: external nose normal and nares normal Face and sinus: normal facial exam Neck Neck: normal visual inspection, no lymphadenopathy and trachea midline Thyroid: thyroid normal Resp Effort & Inspection: normal respiratory effort Musc Other: gross motor intact no deficits, full bilateral strength Skin General: no rashes or lesions noted Neuro Motor: muscle tone normal throughout Coding Level of Care Code No Charge Diagnoses Malignant neoplasm of upper-outer quadrant of left breast in female, estrogen receptor positive C50.412; Z17.0 Estrogen receptor status: positive Assessment and Plan Assessment and Plan (1) Breast cancer of upper-outer quadrant of left female breast: Status: Chronic Qualifiers: Estrogen receptor status: positive Qualified Code(s): C50.412 - Malignant neoplasm of upper-outer quadrant of left female breast; Z17.0 - Estrogen receptor positive status [ER+] Comment: recommend laparosocpic bilateral salpingooophorectomy and IUD removal Medications: New fluconazole take one weekly x 6 months total 150 mg PO ONCE 13 tabs 1RF Changed From fluconazole take one weekly for 6 months. 150 mg PO QWEEK 24 tabs 0RF To fluconazole (Diflucan) take one weekly for 6 months. 150 mg PO QWEEK 24 tabs 0RF Plan After discussing the patient's diagnosis and treatment plan options, patient wishes to proceed with surgical management. I have discussed with the patient the risks, benefits, and alternatives of the procedure which include but are not limited to risks of anesthesia, bleeding, infection, possible damage to bowel, bladder, or surrounding vasculature which could lead to additional surgery to evaluate any complications. Patient agrees to procedure and wishes to proceed. ACOG/uptodate references given for additional information regarding procedure.
[2023-05-11 13:34] VITALS: BP 103/61; PULSE 75; RESP 16; TEMP 36.6; O2SAT 100; BMI 21.4
[2023-05-11] MEDS: Lactated Ringers 1,000 ML 15 ML IV (13:37)
--- NOTE | 2023-05-11 14:33 | PCM.OPRPT ---
Problems Associated Problem List Diagnoses (1) Breast cancer of upper-outer quadrant of left female breast: Report of Operation Date of Procedure: 05/11/23 Pre-Operative Diagnosis: see problem list Post-Operative Diagnosis: same Surgery/Procedure Performed:: laparoscopic bilateral salpingoo-ophorectomy Surgeon: Julia Whitaker Type of Anesthesia: General and Local Special Medications: none Specimen's removed: tubes and ovaries Drains: none Estimated Blood Loss (mL): 50 Fluids Replaced: crystalloid Description of Procedure: Patient was taken in the operating room and was placed under general anesthesia was prepped and draped in normal sterile fashion in the dorsal lithotomy position. Bladder was drained of clear urine and SCDs were on preoperatively. Uterus was sounded and a uterine manipulator was placed after dilating. Attention was then paid to the abdominal portion of the procedure and the umbilicus was elevated with towel clamps and injected with Marcaine and after a 12 mm incision was made and the Veress needle was entered into the abdomen confirmed to be intra-abdominal with a low opening pressure of less than 5 mmHg. Abdomen was insufflated with CO2 gas and a 12 mm optical trocar was placed under direct visualization. A right and left lower quadrant 5 mm ports were placed under direct visualization. Uterus was well visualized and bilateral fallopian tubes and ovaries were identified and the [bilateral] infundibulopelvic ligament [were] transected across using the LigaSure device followed by transecting across the mesosalpinx to the attachment to the uterine corpus bilaterally the tubes [and ovaries] were removed without complication. Excellent hemostasis was noted. Specimens were removed through the umbilical port site through a bag without any intra-abdominal spillage of contents. The fascial incision was closed using the Carlo Felix and an 0 Vicryl. Liver and upper abdomen were visualized notably within normal limits and no other gross abnormalities were seen in the abdomen. All instruments removed from the abdomen after gas was desufflated. Port sites were closed with 3-0 Monocryl Steri's and op sites were applied. All instruments removed from the vagina and patient was awoken and taken recovery in stable condition. Grafts/Implants Used: none Complications none Admit VTE Documentation VTE Present on Admission: No VTE Mechan Device Prophylaxis: SCD's Multi Select Codes Urinary/Genital Urinary/Genital CPT Codes: 85466 Laproscopic BS/O
--- NOTE | 2023-05-11 14:45 | FALS_PTH ---
PATIENT: SALVATORE ZHANG LOC: [facility] [place] U#:[id number] AGE/SX: 47/F ROOM: RE05/11/[address]: Dr. Julia Whitaker MD : 1975 BED: DIS: 05/11/2023 SPEC #: [id number] RECD: 05/12/23 18:31 STATUS: LAURA YEN #: [id number] DONTE: 05/11/23 14:[address]: Julia Whitaker DEPT: SURGICAL PATHOLOGY RECD BY: Vicenta Piedra ENTERED: 05/12/23 11:02 SP TYPE: FALL TUBES OTHR DR: Dr. Raya Dillard MD Tissues: Fallopian tube Procedures: Surgery Specimen Level II HEADER OPERATION: Laparoscopic, salpingo-oophorectomy, removal of IUD PRE-OP DIAGNOSIS: Breast cancer of upper-outer quadrant of left female breast TISSUE SUBMITTED: Bilateral fallopian tubes and ovaries MICROSCOPIC DIAGNOSIS Bilateral fallopian tubes and ovaries, salpingo-oophorectomy: Bilateral fallopian tubes and ovaries, no pathologic diagnosis. SJ: 05/13/2023 MICROSCOPIC DESCRIPTION Slides are reviewed. GROSS DESCRIPTION Received in fixative is one container labeled with the patient's name and designated bilateral fallopian tubes and ovaries. The specimen consists of bilateral fallopian tubes and ovaries. The fallopian tubes and ovaries are not identified as right or left. One fallopian tube including fimbrial ends measures 4 cm in length and 0.1 cm in diameter. Sections reveal unremarkable cut surfaces. The adjacent ovary measures 2.5 x 1.5 x 2.0 cm. The second fallopian tube including fimbrial ends measuring 4 cm in length and 0.4 cm in diameter, it is similar appearance to first one. The second ovary measures in aggregate 3 x 2 x 1 cm. Sections reveal unremarkable cut surfaces. General Claims Agent sections are submitted in four cassettes, 1 &2 - one fallopian tube and adjacent ovary, 3 &4 - second fallopian tube and adjacent ovary. / SJ: TC:4 CPT: 37190 x2
--- NOTE | 2023-05-11 15:33 | PCM.DC ---
Discharge Instructions Diet Discharge Diet: No restrictions Activity Discharge Activity: Return to Normal Activity, May Not Drive (for 2 weeks or while taking narcotic pain meds.), May Shower and May Take a Tub Bath (in 7 days) May resume sexual activity in: 1 week Weight Bearing Status: Full weight bearing Dressing / Incision Call your doctor if your incision/area has: Continuous Slow Oozing, Sudden Increased Bleeding, Increased Pain/ Swelling, Increased Redness and Foul Smelling Discharge Call your doctor if you observe: Fever of 101 or Higher, Using more than 1 pad per hour, Shortness of breath, Chest pain and Uncontrolled pain Suture Line Care: Avoid Pulling/Pushing and Avoid Pinching/Bending Remove Dressing in: 1 week (if present) Cleanse incision/area with: Soap & Water and Keep Dressing Clean & Dry Follow Up Care When: Call to make an appointment with your doctor for a fu/incision check in 1-2 weeks. Test Results: Test results from this visit will be discussed in further detail at your follow-up appointment, if applicable. Discharge Plan Admission Attending Provider: Julia Whitaker Primary Care Provider: Raya Dillard Discharge Orders/Prescriptions Prescriptions: New oxycodone-acetaminophen [Percocet] 5-325 mg tablet 1 tab PO Q6H PRN (Reason: pain) 7 Days Qty: 10 0RF naproxen [naproxen] 500 mg tablet 500 mg PO BID PRN PRN (Reason: Pain) Qty: 30 1RF Discontinued copper [ParaGard T 380A] 380 square mm intrauterine device 1 device intrauterine ONCE Qty: 1 0RF No Action multivitamin Tablet 1 tablet PO DAILY Probiotic 3 billion cell capsule 3,000 mmu cells PO DAILY Rx Instructions: administer with a meal Lupron Depot 3.75 mg syringe kit 3.75 mg IM QMONTH Prolia 60 mg/mL syringe 60 mg SC [id number] ascorbic acid (vitamin C) 1,000 mg tablet 1 g PO DAILY Slow Release Iron 250 mg (50 mg iron) tablet extended release 250 mg PO DAILY fluconazole 150 mg tablet 150 mg PO QWEEK Qty: 24 0RF Rx Instructions: take one weekly for 6 months. fluconazole 150 mg tablet 150 mg PO ONCE Qty: 13 1RF Rx Instructions: take one weekly x 6 months total calcium carbonate 600 MG tablet 600 mg PO BID cholecalciferol (vitamin D3) 400 UNIT capsule 400 unit PO BID Fiber Choice Tablet,Chewable 1 tab PO PRN tamoxifen 20 mg tablet See Rx Instructions .ROUTE .COMPLEX Qty: 60 5RF Dose Instruction: TAKE 1 TABLET BY MOUTH EVERY DAY Rx Instructions: TAKE 1 TABLET BY MOUTH EVERY DAY Creon 36,000-114,000- 180,000 unit capsule,delayed release(DR/EC) See Rx Instructions PO .COMPLEX Qty: 180 3RF Rx Instructions: 1 capsule orally; administer with meals and/or snacks Other Ambulatory Orders: ,Urine (Routine) Timeframe: [id number] Facility: [facility] - Location: Laboratory Ordered By: Dr. Julia Whitaker Referrals / Follow Up: Raya Dillard MD [Primary Care Provider] - Disposition Disposition (needs filled in before D/C Order can be placed): Home, Self Care
[2023-05-11] MEDS: Bupivacaine 0.25% 30 ML Vial (15:35)
[2023-05-11 15:50] VITALS: BP 103/61; BP 109/88; PULSE 59; RESP 12; TEMP 36.7; O2SAT 99
[2023-05-11 16:00] VITALS: BP 101/67; BP 103/61; PULSE 64; RESP 14; O2SAT 97
[2023-05-11 16:15] VITALS: BP 103/61; BP 105/72; PULSE 59; RESP 16; O2SAT 95
[2023-05-11 16:41] VITALS: BP 103/61; BP 107/70; PULSE 60; RESP 16; TEMP 36.3; O2SAT 94
[2023-05-11] MEDS: Oxycodone/Apap 5/325 Tablet PO (17:22)
[2023-05-11 17:28] VITALS: BP 103/61
== END 2023-05-11 17:45 | disposition home or self-care (01) ==
LOC: SDC 13:11 → AC 13:12
PROVIDERS: PCP Internal Medicine; Referring Provider Obstetrics & Gynecology; Visit Provider Obstetrics & Gynecology
PROC: (CPT 58661; principal; 2023-05-11 14:30)
DX: C50.412 Malignant neoplasm of upper-outer quadrant of left female breast (principal); Z17.0 Estrogen receptor positive status [ER+]; Z80.3 Family history of malignant neoplasm of breast; Z79.899 Other long term (current) drug therapy; Z86.16 Personal history of COVID-19
CPT/HCPCS: 58661; 00840; 36415; 85027; 86850; 86900; 86901; 88302; J7120; J2405

== ENCOUNTER → 2023-08-11 | Outpatient (CLI) | payer OTHER, SELFPAY ==
[2022-06-22 08:12] VITALS: BMI 20.9
--- NOTE | 2023-08-11 13:29 | BI_ITS ---
MAMMOGRAPHY - UNILATERAL SCREENING: RIGHT BREAST REASON FOR EXAM: Female, 47 years old. Routine annual screening examination (unilateral). PERTINENT HISTORY: Personal history of breast cancer. Prior left mastectomy. Grandmothers with breast cancer. TECHNIQUE: Digital unilateral breast home (3D mammographic acquisition) in the CC and MLO projections. 2-D mediolateral oblique (MLO) and craniocaudad (CC) views of both breasts were obtained. CAD: Full Field Digital Mammography with Computer Added Detection was performed. COMPARISON: Comparison is made with prior study January 26, 2022 and January 24, 2021. FINDINGS: Breast Composition: The breasts are extremely dense, which lowers the sensitivity of mammography. There are no dominant masses or suspicious calcifications. No other significant abnormalities are identified. There has been no significant change since the prior study. BI/SCREEN MAMM (CAD) W/HOME UNI R IMPRESSION: Stable unilateral screening mammogram. Yearly follow-up mammogram recommended. (A) ASSESSMENT CATEGORY: BIRADS Category 1: Negative. A letter regarding these results will be sent to the patient by the facility within 30 days. Approximately 10% of breast cancers are not detected by mammography. A normal mammogram should not delay biopsy of a clinically suspicious abnormality. [id number] Electronically Signed: Carlin Encinas MD at 14:33 EST ,
== END | disposition home or self-care (01) ==
LOC: OPBI 13:29
PROVIDERS: PCP Internal Medicine; Visit Provider Internal Medicine Hematology & Oncology
DX: Z12.31 Encounter for screening mammogram for malignant neoplasm of breast (principal); Z90.12 Acquired absence of left breast and nipple; Z85.3 Personal history of malignant neoplasm of breast
CPT/HCPCS: 77063; 77067

== ENCOUNTER → 2023-09-03 | Outpatient (CLI) | payer OTHER, SELFPAY ==
[2022-06-22 08:12] VITALS: BMI 20.9
--- OUTSIDE RECORDS SUMMARY | 2023-09-01 21:35 | XMS RPT_ITS | CCD ---
Author Name Unknown Address [address] [place] [address] Organization [facility] Care Team Providers Care Technical Sme Name Role Phone Christiano HOWELL, Sylvia Primary Care Provider Allergies Allergy Classification Reported Allergen(s) Allergy Type Date of Onset Reaction(s) Facility (1 source) Cephalexin Drug Allergy 08-24-2013 Rash [facility] Medications Completed/Discontinued Medications Medication Drug Class(es) Dates Sig (Normalized) Sig (Original) Ethinyl Estradiol / Levonorgestrel (1 source) Progestin, Estrogen, Progestin-containin g Intrauterine Device Start: 07-10-2016 take 1 tablet by mouth once daily Levonorgestrel-E thinyl Estrad (ORSYTHIA) 0.1mg - 20mcg per tablet Take 1 tablet by mouth once daily. 1 Package 13 07/10/2016 Active Problems Active Problems Problem Classification Problem Date Documented Da te Episodic/Chronic Menstrual disorders (1 source) Dysmenorrhea; Translations: [Dysmenorrhea, unspecified] Onset: 02-16-2014 02-16-2014 Chronic Mood disorders (1 source) Depressive disorder; Translations: [Depressed] Onset: 08-24-2013 08-24-2013 Chronic Other screening for suspected conditions (not mental disorders or infectious disease) (1 source) Patient encounter status; Translations: [Encounter for screening mammogram for malignant neoplasm of breast] Episodic Past or Other Problems Problem Classification Problem Date Documented Da te Episodic/Chronic Other connective tissue disease (1 source) Pain in upper limb; Translations: [Pain in arm, unspecified] Onset: 08-24-2013 08-24-2013 Episodic Other infections; including parasitic (1 source) H/O: viral illness; Translations: [Personal history of other infectious and parasitic diseases] Onset: 08-24-2013 08-24-2013 Episodic Other liver diseases (1 source) Enzyme level - finding; Translations: [Elevated transaminase level] Onset: 12-20-2013 06-30-2021 Episodic Other nervous system disorders (1 source) Numbness of lower limb ; Translations: [Anesthesia of skin] Onset: 12-20-2013 06-30-2021 Episodic Encounters Encounter Date Encounter Type Care Provider Facility Start: 02-04-2022 ambulatory Sylvia Kumari Work Phone: [facility] [place] Procedures Date Procedure Procedure Detail Performing Clinician Start: 01-12-2020 Mammography Sylvia modi MD Work Phone: Plan of Treatment Date Care Activity Detail Author Start: 10-04-2023 HPV TESTING HPV TESTING [facility] Start: 10-04-2023 PAP TESTING PAP TESTING [facility] Start: 03-05-2022 Influenza vaccination INFLUENZA (#1) [facility] Start: 01-21-2022 LIPID SCREEN LIPID SCREEN [facility] Start: 2021 COLOGUARD (FIT-DNA) COLOGUARD (FIT-DNA) [facility] Start: 2021 Colonoscopy COLONOSCOPY [facility] Start: 2021 COLORECTAL CANCER SCREENING COLORECTAL CANCER SCREENING [facility] Start: [address] COLONOGRAPHY [facility] Start: 2021 DIABETES SCREEN DIABETES SCREEN [facility] Start: 2021 FECAL OCCULT BLOOD FECAL OCCULT BLOOD [facility] Start: 2021 SIGMOIDOSCOPY SIGMOIDOSCOPY [facility] Start: 01-11-2021 Mammography MAMMOGRAM [facility] Start: 11-28-1995 Urine microalbumin profile DTAP,TDAP,TD (1 - Tdap) [facility] Start: 1994 HEPATITIS C SCREENING HEPATITIS C SCREENING [facility] Start: 1994 HIV SCREENING HIV SCREENING [facility] Start: 05-30-1977 COVID-19 VACCINE (#1) COVID-19 VACCINE (#1) [facility] Start: 1976 HEPATITIS B (1 of 3 - 3-dose series) HEPATITIS B (1 of 3 - 3-dose series) [facility] End: 03-06-2023 Screening mammography bi 2-view breast inc cad BAR SCREENING Radiology Routine Encounter for screening mammogram for breast cancer 1 Occurrences starting 02/04/2022 until 03/06/2023 [facility] Work Phone: Payers Date Payer Category Payer Unknown [employer] P[employer] [id number] 2019-Present [phone] [address] [place] [address] PPO [id number] Social History Date Type Detail Facility Start: 02-16-2014 Tobacco smoking status NHIS Never smoked tobacco [facility] Work Phone: Start: 02-16-2014 Tobacco use and exposure Smokeless tobacco non-user [facility] Work Phone: Start: 01-22-2020 Alcohol intake Current drinke r of alcohol (finding) [facility] Start: 02-16-2014 History SDOH Alcohol Comment Occasionally [facility] Start: 1975 Sex Assigned At Not on file [facility] Clinical Note 02-04-2022 Note Date & Type Note Facility 02-04-2022 Note Patient Outreach ([facility]) SALVATORE ZHANG ([id number]) 1975 F Date Time Provider Department 02/04/22 SYLVIA WREN During your visit today, we recorded the following information about you: Allergies As of Date: 02/04/2022 Noted Allergy Reaction KEFLEX (CEPHALEXIN) 08/24/2013 2 - Rash Date Reviewed: 01/20/2017 Reviewed by: Tania Steele Manager [employer] - Fully Assessed Visit Diagnosis:Encounter for screening mammogram for breast cancer [Z12.31] Order(s):BAR SCREENING [[id number]] Order #: [id number] FUTURE Prescriptions as of 02/09/2022 - PNV [id number] 29 mg iron-1 mg -50 mg CPKD Take by mouth. - meloxicam (MOBIC) 15 mg tablet Take 1 tablet by mouth once daily. for pain. Take with food. - rizatriptan (MAXALT) 5 mg tablet Take 1 tablet by mouth as needed. May repeat in 2 hours if needed Could try 2 tablets if one does not work. - acidophilus-pectin, citrus (ACIDOPHILUS PROBIOTIC) 100 million cell-10 mg cap Take 1 capsule by mouth every morning. - Levonorgestrel-Ethinyl Estrad (ORSYTHIA) 0.1mg - 20mcg per tablet Take 1 tablet by mouth once daily. Problem List As Of Date 02/04/2022 Noted Resolved Arm pain [M79.603] 08/24/2013 Depressed [F32.A] 08/24/2013 H/O viral infection [Z86.19] 08/24/2013 Thigh numbness [R20.0] 12/20/2013 Elevated transaminase level [R74.01] 12/20/2013 Dysmenorrhea [N94.6] 02/16/2014 Encounter Status:Closed by CLIFF FINLEY on 02/09/22 [facility] Clinical Note 02-26-2021 Note Date & Type Note Facility 02-26-2021 Note Patient Outreach ([facility]) SALVATORE ZHANG ([id number]) 1975 F Date Time Provider Department 02/26/21 SYLVIA WREN During your visit today, we recorded the following information about you: Allergies As of Date: 02/26/2021 Noted Allergy Reaction KEFLEX (CEPHALEXIN) 08/24/2013 2 - Rash Date Reviewed: 01/20/2017 Reviewed by: Tania Steele Manager [employer] - Fully Assessed Visit Diagnosis:Encounter for screening mammogram for breast cancer [Z12.31] Order(s):[facility] SCREENING [[id number]] Order #: [id number] FUTURE Prescriptions as of 03/03/2021 - PNV [id number] 29 mg iron-1 mg -50 mg CPKD Take by mouth. - meloxicam (MOBIC) 15 mg tablet Take 1 tablet by mouth once daily. for pain. Take with food. - rizatriptan (MAXALT) 5 mg tablet Take 1 tablet by mouth as needed. May repeat in 2 hours if needed Could try 2 tablets if one does not work. - acidophilus-pectin, citrus (ACIDOPHILUS PROBIOTIC) 100 million cell-10 mg cap Take 1 capsule by mouth every morning. - Levonorgestrel-Ethinyl Estrad (ORSYTHIA) 0.1mg - 20mcg per tablet Take 1 tablet by mouth once daily. Problem List As Of Date 02/26/2021 Noted Resolved Arm pain [M79.603] 08/24/2013 Depressed [F32.9] 08/24/2013 H/O viral infection [Z86.19] 08/24/2013 Thigh numbness [R20.0] 12/20/2013 Elevated transaminase level [R74.01] 12/20/2013 Dysmenorrhea [N94.6] 02/16/2014 Encounter Status:Closed by CLIFF FINLEY on 03/03/21 [facility] Evaluation note Note Date & Type Note Facility documented in this encounter [facility] Reason for referral (narrative) Diagnostic Procedure Only (Routine) - Pending Review Note Date & Type Note Facility Referral ID Status Reason Start Date Expiration Date Visits Requested Visits Authorized [id number] Pending Review Auto-Generat ed Referral 02/04/2022 03/06/2023 1 1 [facility] Summary Purpose Family History No Family History Records Found Advance Directives No Advanced Directives Records Found Additional Source Comments INFORMATION SOURCE (unrecogn ized section and content) Source Comments (unrecognize d section and content) In the event this informatio n is protected by the Federal Confidentiality of Alcohol and Drug Abuse Patient Records regulations: The Federal rules restrict any use of the information to criminally investigate or prosecute any alcohol or drug abuse patient.[facility] Care Teams (unrecognized sec tion and content) FOR RECORDS PERTAINING TO PATIENTS WHO ARE OR HAVE BEEN ENROLLED IN A CHEMICAL DEPENDENCY/SUBSTANCEABUSE PROGRAM, SOME INFORMATION MAY BE OMITTED. This clinical summary was aggregated from multiple sources. Caution should be exercised in using it in the provision of clinical care. This summary normalizes information from multiple sources, and as a consequence, information in this document may materially change the coding, format and clinical context of patient data. In addition, data may be omitted in some cases. CLINICAL DECISIONS SHOULD BE BASED ON THE PRIMARY CLINICAL RECORDS. [facility] provides no warranty or guarantee of the accuracy or completeness of information in this document.
[2023-09-07 21:07] LABS: Pancreatic Elastase, Fecal < 50 (>200)
== END | disposition home or self-care (01) ==
LOC: LAB.FUTURE 09:18 → LAB 09:18
PROVIDERS: PCP Internal Medicine; Visit Provider Internal Medicine Gastroenterology
DX: K86.81 Exocrine pancreatic insufficiency (principal)
CPT/HCPCS: 82653

== ENCOUNTER → 2023-10-29 | Outpatient (CLI) | payer OTHER, SELFPAY ==
[2022-06-22 08:12] VITALS: BMI 20.9
[2023-10-29 12:35] LABS: Absolute Lymphocyte Count 1.23 X10^3/uL (0.83-4.51); Absolute Neutrophil Count 2.7 X10^3/uL (2.0-7.7); Basophil# 0.08 X10^3/uL; Basophil% 1.6 % (0-1); Eosinophil# 0.36 X10^3/uL; Eosinophils% 7.3 % (0-5); Hematocrit 37.3 % (37-47); Hemoglobin 12.2 g/dL (12.0-15.0); Lymphocyte # 1.23 X10^3/ul (0.83-4.51); Lymphocyte % 24.9 % (19-41); Mean Corp Hgb Conc 32.7 g/dL (32-36); Mean Corpuscular Hgb 29.7 pg (27.0-32.0); Mean Corpuscular Volume 90.8 fL (81-99); Mean Platelet Vol. 11.1 fl (6.2-12.0); Monocyte# 0.54 X10^3/uL; Monocyte% 10.9 % (0-10); NRBC Flagged by Analyzer 0 % (0-5); Neutrophil # 2.72 X10^3/uL (2.7-7.7); Neutrophil % 55.1 % (47-70); Platelet Count 203 K/mm3 (150-450); RBC Distribution Width CV 12.3 % (11.6-14.6); RBC Distribution Width SD 40.4 fl (35.1-43.9); Red Blood Count 4.11 M/mm3 (4.2-5.4); White Blood Count 4.9 K/mm3 (4.4-11.0)
[2023-10-29 13:41] LABS: ALB/GLOB Ratio 0.9 RATIO (0.9-2.4); AST(SGOT) 22 U/L (15-37); Alanine Aminotransfer ALT/SGPT 27 U/L (13-56); Albumin, Serum 3.5 g/dL (3.2-5.0); Alkaline Phosphatase 41 U/L (45-117); Anion Gap 2 (5-15); BUN 21 mg/dL (7-18); BUN/Creat Ratio 29.5 RATIO (10-20); Calcium,Total 9.3 mg/dL (8.5-10.1); Chloride 104 mmol/L (98-107); Cholesterol 181 mg/dL (200); Creatinine, Serum 0.71 mg/dL (0.55-1.02); EST Glomerular Filtration Rate 94 mL/min (>60); Est Glom Filt Rate - Afr Amer 113 mL/min (>60); Globulin 3.7 g/dL (2.2-4.2); Glucose 93 mg/dL (74-106); High Density Lipoprotein 70 mg/dL; Potassium 4.6 mmol/L (3.5-5.1); Protein, Total 7.2 g/dL (6.4-8.2); Sodium Level 136 mmol/L (136-145); Triglycerides 89 mg/dL; Very Low Density Lipoprotein 18 mg/dL (5-40)
== END | disposition home or self-care (01) ==
LOC: BIMLAB 11:16
PROVIDERS: PCP Internal Medicine; Visit Provider Internal Medicine
DX: Z00.00 Encounter for general adult medical examination without abnormal findings (principal)
CPT/HCPCS: 36415; 80053; 80061; 85025

== ENCOUNTER → 2023-11-08 | Outpatient (CLI) | payer OTHER, SELFPAY ==
[2022-06-22 08:12] VITALS: BMI 20.9
== END | disposition home or self-care (01) ==
LOC: LABSPEC 10:05
PROVIDERS: PCP Internal Medicine; Referring Provider Internal Medicine Gastroenterology; Visit Provider Internal Medicine Gastroenterology
DX: K86.81 Exocrine pancreatic insufficiency (principal)
CPT/HCPCS: 82653

== ENCOUNTER → 2024-01-10 | Outpatient (CLI) | payer OTHER, SELFPAY ==
[2022-06-22 08:12] VITALS: BMI 20.9
[2024-01-14 15:09] LABS: Pancreatic Elastase, Fecal 46 (>200)
== END | disposition home or self-care (01) ==
LOC: LABSPEC 09:50
PROVIDERS: PCP Internal Medicine; Referring Provider Internal Medicine Gastroenterology; Visit Provider Internal Medicine Gastroenterology
DX: K86.81 Exocrine pancreatic insufficiency (principal)
CPT/HCPCS: 82653

== ENCOUNTER → 2024-02-07 | Outpatient (CLI) | payer OTHER, SELFPAY ==
[2022-06-22 08:12] VITALS: BMI 20.9
--- NOTE | 2024-02-07 13:40 | MRI_ITS ---
STUDY: BILATERAL BREAST MR WITHOUT AND WITH CONTRAST REASON FOR EXAM: Female, 48 years old. History of left mastectomy. Dense breasts. Screening for breast cancer. TECHNIQUE: Multi-sequence multi-echo imaging of both breasts was performed with a dedicated breast coil. T1-weighted and T2-weighted images were performed before the administration of contrast. T1-weighted images were also performed after the intravenous administration of 13 cc of Clariscan contrast. COMPARISON: Screening right mammogram dated January 26, 2022 and August 11, 2023 prior MRI of the breasts dated February 04, 2023 RIGHT BREAST: Heterogeneously dense fibroglandular tissue with no significant background enhancement. No abnormal enhancing masses or areas of non-mass enhancement in the right breast. LEFT BREAST: Stable changes of left mastectomy with no significant background enhancement. No abnormal enhancing masses or areas of non-mass enhancement in the left breast. No enlarged or abnormal lymph nodes. No abnormality in the visualized regions of the chest or liver. MRI/Breast Bilateral W/O and W IMPRESSION: Status post left mastectomy with no other abnormality on the breast MRI study with contrast. Yearly follow-up mammogram alternating with breast MRI with contrast would be appropriate. CATEGORY: BIRADS Category 2: Benign. A letter regarding these results will be sent to the patient by the facility within 30 days. Electronically Signed: Jhonny France MD at 9:53 EDT ,
== END | disposition home or self-care (01) ==
LOC: MRI 13:22
PROVIDERS: PCP Internal Medicine; Referring Provider Nurse Practitioner Family; Visit Provider Nurse Practitioner Family
DX: R92.30 Dense breasts, unspecified (principal); Z85.3 Personal history of malignant neoplasm of breast
CPT/HCPCS: 77049; A9575; A4216; C8908

== ENCOUNTER → 2024-02-28 | Outpatient (CLI) | payer OTHER, SELFPAY ==
[2022-06-22 08:12] VITALS: BMI 20.9
== END | disposition home or self-care (01) ==
LOC: LABSPEC 12:35
PROVIDERS: PCP Internal Medicine; Referring Provider Obstetrics & Gynecology; Visit Provider Obstetrics & Gynecology
DX: B37.31 Acute candidiasis of vulva and vagina (principal)
CPT/HCPCS: 87070; 87205

== ENCOUNTER → 2024-05-25 | Outpatient (CLI) | payer OTHER, SELFPAY ==
[2022-06-22 08:12] VITALS: BMI 20.9
[2024-05-28 01:06] LABS: Calprotectin, Stool 10 ug/g (0-120); Fats, Neutral Normal (.); Fats, Total Normal (.)
[2024-05-29 04:06] LABS: Pancreatic Elastase, Fecal 89 (>200)
== END | disposition home or self-care (01) ==
LOC: LABSPEC 08:32
PROVIDERS: PCP Internal Medicine; Referring Provider Internal Medicine Gastroenterology; Visit Provider Internal Medicine Gastroenterology
DX: K86.81 Exocrine pancreatic insufficiency (principal); K58.9 Irritable bowel syndrome, unspecified
CPT/HCPCS: 82653; 82705; 83993; 87506

== ENCOUNTER → 2024-08-15 | Outpatient (CLI) | payer OTHER, SELFPAY ==
[2022-06-22 08:12] VITALS: BMI 20.9
--- NOTE | 2024-08-15 14:36 | BI_ITS ---
PROCEDURE: SCREEN MAMM (CAD) W/HOME UNI R REASON FOR EXAM: F, Age 48 y/o, personal history of breast cancer. Prior left mastectomy. Grandmothers with breast cancer. TECHNIQUE: Unilateral right screening digital breast tomosynthesis with 2D and 3D images. Computer aided detection. COMPARISON: Prior exam(s) dating back to January 26, 2022. FINDINGS: The breasts are extremely dense which lowers the sensitivity of mammography. Stable examination. No suspicious masses, areas of developing architectural distortion, or suspicious calcifications. BI/SCREEN MAMM (CAD) W/HOME UNI R IMPRESSION: BI-RADS 2: BENIGN. RECOMMEND ANNUAL MAMMOGRAPHIC SCREENING. Follow-up code: Routine Follow-up The patient will be notified of the results by letter. Reading Location: [place] [address]
== END | disposition home or self-care (01) ==
LOC: OPBI 14:35
PROVIDERS: PCP Internal Medicine; Referring Provider Internal Medicine Hematology & Oncology; Visit Provider Internal Medicine Hematology & Oncology
DX: Z12.31 Encounter for screening mammogram for malignant neoplasm of breast (principal); Z85.3 Personal history of malignant neoplasm of breast; Z80.3 Family history of malignant neoplasm of breast; Z90.12 Acquired absence of left breast and nipple
CPT/HCPCS: 77063; 77067

== ENCOUNTER → 2024-08-24 | Outpatient (CLI) | payer OTHER, SELFPAY ==
[2022-06-22 08:12] VITALS: BMI 20.9
[2024-08-27 03:13] LABS: Calprotectin, Stool 5 ug/g (0-120)
[2024-08-28 01:06] LABS: Pancreatic Elastase, Fecal 50 (>200)
== END | disposition home or self-care (01) ==
LOC: LABSPEC 09:18
PROVIDERS: PCP Internal Medicine; Referring Provider Internal Medicine Gastroenterology; Visit Provider Internal Medicine Gastroenterology
DX: K86.81 Exocrine pancreatic insufficiency (principal); K90.41 Non-celiac gluten sensitivity
CPT/HCPCS: 82653; 83993

== ENCOUNTER → 2024-08-30 | Outpatient (CLI) | payer OTHER, SELFPAY ==
[2022-06-22 08:12] VITALS: BMI 20.9
[2024-08-30 10:13] LABS: Cholesterol 169 mg/dL (<=200); High Density Lipoprotein 76 mg/dL; Low Density Lipoprotein Calc. 67 mg/dL; Triglycerides 131 mg/dL; Very Low Density Lipoprotein 26 mg/dL (5-40); cholesterol:hdl ratio screen 2.22
== END | disposition home or self-care (01) ==
LOC: LAB 09:22
PROVIDERS: PCP Internal Medicine; Referring Provider Internal Medicine Gastroenterology; Visit Provider Internal Medicine Gastroenterology
DX: K86.81 Exocrine pancreatic insufficiency (principal)
CPT/HCPCS: 36415; 80061

== ENCOUNTER → 2024-09-15 | Outpatient (CLI) | payer OTHER, SELFPAY ==
[2024-09-15 09:48] VITALS: BMI 20.9
== END | disposition home or self-care (01) ==
LOC: LABSPEC 15:36
PROVIDERS: PCP Internal Medicine; Referring Provider Advanced Practice Midwife; Visit Provider Advanced Practice Midwife
DX: N89.8 Other specified noninflammatory disorders of vagina (principal)
CPT/HCPCS: 87070; 87077; 87186; 87205

== ENCOUNTER → 2024-10-11 | Outpatient (CLI) | payer OTHER, SELFPAY ==
[2024-09-15 09:48] VITALS: BMI 20.9
== END | disposition home or self-care (01) ==
LOC: MTLAB 13:58
PROVIDERS: PCP Internal Medicine; Referring Provider Internal Medicine Gastroenterology; Visit Provider Internal Medicine Gastroenterology
DX: Z00.00 Encounter for general adult medical examination without abnormal findings (principal)
CPT/HCPCS: 36415

== ENCOUNTER → 2025-02-07 | Outpatient (CLI) | payer OTHER, SELFPAY ==
[2024-09-15 09:48] VITALS: BMI 20.9
--- NOTE | 2025-02-07 09:31 | MRI_ITS ---
PROCEDURE: BREAST BILATERAL W/O AND W 02/07/2025 REASON FOR EXAM: FOLLOW UP TREATED BREAST CANCER 49-year-old female with history of left breast cancer status post mastectomy in 2019. Family history of breast cancer in maternal grandmother and paternal grandmother. TECHNIQUE: BREAST BILATERAL W/O AND W CONTRAST: 13 mL of IV Clariscan COMPARISON: MRI 02/07/2024. Mammogram 08/15/2024 FINDINGS: TISSUE DENSITY: The breasts are heterogeneously dense, which may obscure small masses. Background Parenchymal Enhancement: Minimal RIGHT Breast: No suspicious mass or non-mass enhancement. LEFT Breast: Postsurgical changes of left mastectomy. There are no suspicious areas of enhancement in the mastectomy bed. Other Findings: No suspicious axillary or internal mammary lymph nodes. Visualized portions of the thoracic and abdominal viscera are unremarkable. MRI/Breast Bilateral W/O and W IMPRESSION: There is no MRI evidence of malignancy. OVERALL FINAL ASSESSMENT BI-RADS 2: BENIGN RECOMMENDATION: Routine annual follow-up in 1 Year, alternating with breast MRI with contrast. Reading Location: [id number]
--- NOTE | 2025-02-07 09:35 | BD_ITS ---
PROCEDURE: DEXA BONE DENSITY STUDY 02/07/2025 REASON FOR EXAM: SCREENING F, age 49 y/o . Postmenopausal. TECHNIQUE: DEXA BONE DENSITY STUDY COMPARISON: August 26, 2022. FINDINGS: BMD and T-SCORES Lumbar spine: 1.263 g/cm2, T-score 2.0 Levels: L1 through L4 Change from prior: Improvement of 3.5%. Left femoral neck: 0.763 g/cm2, T-score -0.8 Femoral neck comparison data not recommended for monitoring change. Left total hip: 0.869 g/cm2, T-score -0.6 Change from prior: Improvement of 2.3%. Right femoral neck: 0.755 g/cm2, T-score -0.8 Femoral neck comparison data not recommended for monitoring change. Right total hip: 0.828 g/cm2, T-score -0.9 Change from prior: Loss of 2.7%. The World Health Organization has defined the following categories based on bone density: Normal bone density: T-score equal to or greater than -1.0 Osteopenia: T-score between -1.0 and -2.5 Osteoporosis: T-score equal to or less than -2.5 The patient does meet the pharmacological treatment recommendations for prevention of osteoporosis. BD/Dexa Bone Density Study IMPRESSION: NORMAL T-SCORES. Recommend follow-up as clinically warranted. Reading Location: [id number]
== END | disposition home or self-care (01) ==
PROVIDERS: PCP Internal Medicine; Referring Provider Student in an Organized Health Care Education/Training Program; Visit Provider Student in an Organized Health Care Education/Training Program
DX: C50.411 Malignant neoplasm of upper-outer quadrant of right female breast (principal); Z17.0 Estrogen receptor positive status [ER+]; Z13.820 Encounter for screening for osteoporosis; Z78.0 Asymptomatic menopausal state; Z79.811 Long term (current) use of aromatase inhibitors
CPT/HCPCS: 77049; 77080; A9575; A4216; C8908

== ENCOUNTER → 2025-02-22 | Outpatient (CLI) | payer OTHER, SELFPAY ==
[2024-09-15 09:48] VITALS: BMI 20.9
[2025-02-22 11:49] LABS: Hematocrit 37.7 % (37-47); Hemoglobin 12.6 g/dL (12.0-15.0); Immature Granulocytes Count 0.020 X10^3/uL (0.0-0.0); Mean Corp Hgb Conc 33.4 g/dL (32-36); Mean Corpuscular Volume 87.9 fL (81-99); Mean Platelet Vol. 10.8 fl (6.2-12.0); NRBC Flagged by Analyzer 0 % (0-5); Platelet Count 226 K/mm3 (150-450); RBC Distribution Width CV 12.3 % (11.6-14.6); RBC Distribution Width SD 39.2 fl (35.1-43.9); Red Blood Count 4.29 M/mm3 (4.2-5.4); White Blood Count 8.9 K/mm3 (4.4-11.0)
[2025-02-22 12:25] LABS: AST(SGOT) 25 U/L (<=31); Alanine Aminotransfer ALT/SGPT 17 U/L (<=34); Albumin, Serum 4.4 g/dL (3.5-5.0); Alkaline Phosphatase 47 U/L (35-104); Anion Gap 12 (5-15); BUN 15 mg/dL (4-19); BUN/Creat Ratio 21.0 RATIO (10-20); CRP < 3.00 mg/L (0.0-3.0); Calcium,Total 10.0 mg/dL (7.6-11.0); Carbon Dioxide 27.2 mmol/L (21.0-32.0); Chloride 100 mmol/L (98-108); Globulin 3.0 g/dL (2.2-4.2); Glucose 93 mg/dL (70-99); Potassium 3.8 mmol/L (3.3-5.1)
[2025-02-23 14:09] LABS: ANTINUCLEAR ANTIBODIES DIRECT Negative (Negative)
== END | disposition home or self-care (01) ==
LOC: LAB 10:39
PROVIDERS: PCP Internal Medicine; Referring Provider Internal Medicine; Visit Provider Internal Medicine
DX: M19.90 Unspecified osteoarthritis, unspecified site (principal)
CPT/HCPCS: 36415; 80053; 85025; 85652; 86038; 86140; 86200; 86225; 86431